=== PATIENT | female | born 1935 | race Caucasian/White ===

== ENCOUNTER → 2016-11-01 | Outpatient (CLI) | payer OTHER ==
[2016-01-18 09:27] VITALS: BP 122/78
[2016-11-01 09:16] LABS: HEMOGLOBIN A1C 6.2 % (4.5-6.2)
[2016-11-01 09:18] LABS: CHOL/HDL RATIO 7.5 (0.0-5.0)
== END ==
LOC: LAB 08:39
PROVIDERS: ATTEND Nurse Practitioner Family
DX: R74.8 Abnormal levels of other serum enzymes (principal); E78.4 Other hyperlipidemia; E11.9 Type 2 diabetes mellitus without complications; M85.9 Disorder of bone density and structure, unspecified
CPT/HCPCS: 36415; 80061; 82306; 83036; 84450; 84460

== ENCOUNTER 2017-04-17 07:23 | Day surgery (SDC) | payer OTHER ==
[2017-04-17] MEDS ORDERED: D5 LR 1000 ML 1,000 ML IV ONE (07:30)
[2017-04-17] MEDS ORDERED: DIPRIVAN VIAL 20 ML ONE (08:43)
[2017-04-17 09:24] VITALS: BP 128/76
== END 2017-04-17 09:15 | disposition home or self-care (01) ==
LOC: SURG1 07:23
PROVIDERS: ATTEND Internal Medicine Gastroenterology
PROC: 0D757ZZ Dilation of Esophagus, Via Natural or Artificial Opening (ICD-10-PCS; principal; 2017-04-17 08:30)
PROC: 0DB68ZX Excision of Stomach, Via Natural or Artificial Opening Endoscopic, Diagnostic (ICD-10-PCS; principal; 2017-04-17 08:30)
PROC: 0DBN8ZX Excision of Sigmoid Colon, Via Natural or Artificial Opening Endoscopic, Diagnostic (ICD-10-PCS; principal; 2017-04-17 08:30)
PROC: 0DJ08ZZ Inspection of Upper Intestinal Tract, Via Natural or Artificial Opening Endoscopic (ICD-10-PCS; principal; 2017-04-17 08:30)
DX: R13.19 Other dysphagia (principal); R10.13 Epigastric pain; R19.7 Diarrhea, unspecified; K20.8 Other esophagitis; K22.4 Dyskinesia of esophagus; K22.2 Esophageal obstruction; K21.9 Gastro-esophageal reflux disease without esophagitis
CPT/HCPCS: 99100; A4217; J3490; J7120

== ENCOUNTER → 2017-06-03 | Outpatient (CLI) | payer OTHER ==
--- NOTE | 2017-06-06 11:14 | MG ---
HISTORY: SCREENING Comparison: 05/14/2016 FINDINGS: CC and MLO projections of the right and left breast were obtained. Scattered fibroglandular tissue i s present. No significant architectural distortion, mass or clustered microcalcifications can be obs erved to suggest malignancy. No skin thickening or nipple retraction is appreciated. No pathologic al lymphadenopathy can be identified. Benign calcifications are present bilaterally. There is a biops y clip noted in the left breast. IMPRESSION: NO RADIOGRAPHIC EVIDENCE OF MALIGNANCY. ACR CATEGORY 2: Benign findings. FOLLOW-UP EXAM 1 YEAR. Diagnostic CAD was utilized and reviewed. * 0 (ZERO) - ASSESSMENT INCOMPLETE; ADDITIONAL IMAGING IS NEEDED. * 1/ (ONE) - NEGATIVE. * 2/II (TWO) - BENIGN FINDINGS. * 3/III (THREE) - PROBABLY BENIGN FINDING; SHORT INTERVAL FOLLOW-UP SUGGESTED. * 4/IV (FOUR) - SUSPICIOUS ABNORMALITY; BIOPSY SHOULD BE CONSIDERED. * 5/V - HIGHLY SUSPICIOUS OF MALIGNANCY; BIOPSY SHOULD BE PERFORMED. A NEGATIVE X-RAY REPORT SHOULD NOT DELAY BIOPSY IF A DOMINANT OR CLINICALLY SUSPICIOUS MASS IS PRESENT; 4 TO 8 PERCENT OF CANCERS ARE NOT IDENTIFIED BY X-RAY. A NEGA TIVE REPORT MAY REINFORCE THE CLINICAL IMPRESSION. ADENOSIS AND DENSE BREASTS MAY OBSCURE AN UNDERLY ING NEOPLASM. Reported By:
== END ==
LOC: RAD 09:48
PROVIDERS: ATTEND Internal Medicine
DX: Z12.31 Encounter for screening mammogram for malignant neoplasm of breast (principal)
CPT/HCPCS: 77067

== ENCOUNTER 2021-12-03 09:38 | Observation (INO) ==
--- NOTE | 2021-12-03 10:12 | DR.DIZZY ---
HPI Time seen Time Seen by Provider: 12/03/21 10:06 PCP Primary Care Physician: Roberto HPI Comment HPI Comment: PATIENT IS 86YR OLD FEMALE IN ER WITH BELOW HISTOEY. Complaint Chief Complaint Doctor Comments: FELL THIS AM. RIGHT HIP PAIN AND INCREASING RIGHT NECK PAIN SINCE. DIARRHES LAST NIGHT BUT NO BP TODAY. GENERALIZED WEAKNESS THAT IS GETTING WORSE. DENIES DIZZINESS. PAIN IN BOTH ARMS FOR SEVERAL DAYS AND WORSE TODAY. NO FEVER, NAUSEA OR VOMITING. PMH OF DM, HTN AND ARTHRTIS. GLUCOSE IS NOT LOW. Chief Complaint:: Pt c/o fall this am. She c/o neck pain and right hip pain. Pt reports multiple episodes of diarrhea last night and weakness this am. Pt has had pain in bilateral arms for several days. Daughter states her right leg and ankle was swollen yesterday but this is resolved today. COVID-19 Coronavirus risk:travel/contact w/high risk person: No Has patient experienced Coronavirus symptoms: No Nurses Notes Reviewed Nurses Notes Review: Yes Source History Provided: Patient and Family Member Mode of Arrival Mode of Arrival: Stretcher Timing Onset of Chief Complaint: 12/03/21 Came on: Suddenly Duration Duration: Constant Duration: Hours Location of Weakness Weakness Location: Generalized Context Onset: With light exertion History of: None Stroke Symptoms: None Severity Severity: Normal activity level Modifying factors Worsens: Turning Head Associated signs and symptoms Associated Signs and Symptoms: Weak and Headache Other history Other history: DM, HTN, ARTHRITIS. PMH PMH Past Medical History: Yes Past Medical History: Arthritis, Diabetes, Hypertension and PUD Past Surgical History: Yes Surgical History: Cholecystectomy, Hysterectomy, Joint Replacement, Ortho Surgery and Tonsillectomy Family History History of Family Medical Conditions: Yes Family Medical History: Diabetes Mellitus, [place], Coronary Artery Disease, Sudden Cardiac and Hypertension Social History Does patient currently use any type of tobacco product: No Have you used tobacco products in the last 12 months: No Type of Tobacco Use: None Does any household member use tobacco: No Do you use any recreational Drugs:: No Lives With: Alone Lives Where: Home Travel Risk Coronavirus risk:travel/contact w/high risk person: No Has patient experienced Coronavirus symptoms: No Infectious screening In the last 2 months have you had wt loss of >10#?: YES Have you had fever, night sweats or hemotysis?: No Have you traveled outside the country in the last 6 months?: No Isolation: Standard ROS Review of Systems Constitutional: See HPI, Weakness and Fatigue; negative Fever Eyes: No Symptoms Reported and See HPI; negative Blurred Vision and Diplopia ENTM: No Symptoms Reported and See HPI; negative Nose Discharge and Nose Congestion Respiratoy: No Symptoms Reported and See HPI; negative Moist Cough, Short of Breath and Wheezing Cardiovascular: No Symptoms Reported, See HPI and Edema (ON AND OFF); negative Chest Pain Gastrointestinal/Abdominal: See HPI, Abdominal Pain and Diarrhea Genitourinary: No Symptoms Reported and See HPI; negative Dysuria Neurological: See HPI, Headache and Weakness; negative Dizziness Musculoskeletal: See HPI, Back Pain, Pelvis and Hip (RT HIP PAIN.) Integumentary: No Symptoms Reported and See HPI; negative Rash and Juandice Hematologic/Lymphatic: No Symptoms Reported and See HPI; negative Easy Bruising Endocrine: No Symptoms Reported and See HPI; negative Increased Thirst and Increased Urine Psychiatric: No Symptoms Reported and See HPI All Other Systems: Reviewed and Negative PE Vital Signs Vitals: Temperature 98.5 F Pulse Rate 99 Respiratory Rate 16 Blood Pressure [Left Arm] 146/72 Blood Pressure [Right Arm] 133/64 Blood Pressure 154/85 O2 Sat by Pulse Oximetry 98 General Limitations: No Limitations General Appearance: Alert and In No Apparent Distress Head Head Exam: Normal Inspection and Atraumatic Eyes Eye exam: Normal Appearance, PERRL and EOMI; negative Scleral Icterus and Conjunctival Injection Pupils: Regular, Round: Bilateral and Reactive: Bilateral Sclera/Conjunctival: Normal Inspection: Bilateral ENT ENT Exam: Normal Exam, Normal Oropharynx, Normal External Ear Exam and TM's Normal Bilaterally Neck Neck Exam: Normal Inspection, Full ROM, Trachea Midline and Tenderness (POSTERIOR RIGHT NECK TENDERNESS.) Chest Chest Inspection: Normal Inspection and Symmetric Chest Wall Rise; negative Tenderness Respiratory Respiratory Exam: Normal Lung Sounds Bilat; negative Accessory Muscle Use, Chest Wall Tenderness and Respiratory Distress Respiratory Exam: Bilateral: Rhonchi and Lower: Rhonchi Cardiovascular Cardiovascular Exam: Regular Rate, Normal Rhythm and Normal Heart Sounds; negative Systolic Murmur and Diastolic Murmur Abdominal Exam Abdominal Exam: Normal Inspection, Normal Bowel Sounds and Soft; negative Tenderness Rectal Rectal Exam: Deferred Extremeties Extremities Exam: Normal Inspection, Full ROM and Tenderness (BILATERAL HIP TENDERNESS.); negative Normal Capillary Refill Back Back Exam: Normal Inspection and Full ROM; negative (R) CVA Tenderness and (L) CVA Tenderness Neurologic Neurological Exam: Alert and Oriented X3; negative Motor Sensory Deficit Patient Oriented To: Person, Place and Time Speech: Fluid Speech Cranial Nerve Exam: EOM Function (II, III, IV, ): Normal, Facial Sensation (V): Normal, Facial Palsy (VII): Normal and Tongue Deviation: Normal Motor Strength - LUE: 4/5 Motor Strength - RUE: 4/5 Motor Strength - LLE: 3/5 Motor Strength - RLE: 3/5 Upper Motor Neuron Exam: Babinski Sign: Normal Psychiatric Psychiatric Exam: Normal Affect and Normal Mood Skin Skin Exam: Warm, Dry, Intact and Normal Color MDM Additional Information Obtained Additional Information Obtained From: Old Records and Family Differential Diagnosis Differential Diagnosis: Anemia, CVA, Dehydration, Dysrhythmia, Electrolyte disorder, Hypoglycemia, Labyrinthitis, Myocardial infarction, TIA and Central Vertigo Differential Diagnosis Comment: IA, PNEUMONIA, HIP PAIN, UTI. COURSE Treatment Treatment: SEE ORDERS DONE WHILE PATIENT WAS IN ER. Consultation Consultation Comments: DISCUSSED PATIENT WITH DR. YANG. WISAM ADMIT PATIENT. Education/Counseling Education/Counseling: Patient and Family Educated On: Diagnosis ROR Labs Reviewed Laboratory Results Reviewed?: Yes Result Diagrams: 12/05/21 05:07 12/05/21 05:07 Laboratory: 12/03/21 10:58 Urine,Catheterized Urine Culture - Preliminary WBC 4.1 X10^3/uL (3.6-10.0) 12/03/21 10:20 RBC 4.11 X10^6/uL (3.5-5.4) 12/03/21 10:20 Hgb 11.1 g/dL (12.0-16.0) L 12/03/21 10:20 Hct 33.1 % (36.0-47.0) L 12/03/21 10:20 MCV 80.4 fL (80.0-100.0) 12/03/21 10:20 MCH 26.9 pg (27.0-34.0) L 12/03/21 10:20 MCHC 33.5 g/dL (33.0-35.0) 12/03/21 10:20 RDW 14.6 % (11.6-16.5) 12/03/21 10:20 Plt Count 224 X10^3/uL (150.0-450.0) 12/03/21 10:20 MPV 8.5 fL (7.4-11.0) 12/03/21 10:20 Neut % (Auto) 71.0 % (42.0-75.0) 12/03/21 10:20 Lymph % (Auto) 14.9 % (21.0-51.0) L 12/03/21 10:20 Noble % (Auto) 8.5 % (0.0-13.0) 12/03/21 10:20 Eos % (Auto) 4.8 % (0.9-2.9) H 12/03/21 10:20 Baso % (Auto) 0.8 % (0.2-1.0) 12/03/21 10:20 Neut # (Auto) 2.9 x10^3/uL (2.2-4.8) 12/03/21 10:20 Lymph # (Auto) 0.6 X10^3/uL (1.3-2.9) L 12/03/21 10:20 Noble # (Auto) 0.4 x10^3/uL (0.3-0.8) 12/03/21 10:20 Eos # (Auto) 0.2 x10^3/uL (0.0-0.2) 12/03/21 10:20 Baso # (Auto) 0.0 X10^3/uL (0.0-0.1) 12/03/21 10:20 Absolute Nucleated RBC 0.0 /100WBC 12/03/21 10:20 Sodium 139 mmol/L (136-145) 12/03/21 10:20 Corrected Sodium TNP 12/03/21 10:20 Potassium 4.0 mmol/L (3.5-5.1) 12/03/21 10:20 Chloride 105 mmol/L (98-107) 12/03/21 10:20 Carbon Dioxide 23.8 mmol/L (21-32) 12/03/21 10:20 BUN 18 mg/dL (7-18) 12/03/21 10:20 Creatinine 0.88 mg/dL (0.55-1.02) 12/03/21 10:20 Est GFR (MDRD) Af Amer > 60 (>60) 12/03/21 10:20 Est GFR (MDRD) Non-Af > 60 (>60) 12/03/21 10:20 Glucose 98 mg/dL (65-99) 12/03/21 10:20 Calcium 9.4 mg/dL (8.5-10.1) 12/03/21 10:20 Corrected Calcium 10.0 mg/dL (8.5-10.1) 12/03/21 10:20 Total Bilirubin 0.40 mg/dL (0.2-1.0) 12/03/21 10:20 AST 22 Units/L (15-37) 12/03/21 10:20 ALT 20 Units/L (12-78) 12/03/21 10:20 Alkaline Phosphatase 40 Units/L (46-116) L 12/03/21 10:20 Creatine Kinase 223 Units/L (26-192) H 12/03/21 10:20 CK-MB (CK-2) 2.1 ng/mL (0-4.0) 12/03/21 10:20 CK/CKMB % Calc 0.9 % (<4) 12/03/21 10:20 Troponin I High Sens 5.6 ng/L (4.0-60.0) 12/03/21 10:20 Total Protein 6.6 g/dL (6.4-8.2) 12/03/21 10:20 Albumin 3.3 g/dL (3.4-5.0) L 12/03/21 10:20 Globulin 3.3 g/dL (2.5-4.5) 12/03/21 10:20 Albumin/Globulin Ratio 1.0 Ratio (1.1-2.1) L 12/03/21 10:20 Specimen Type Catherized urine 12/03/21 10:58 Urine Color Yellow (YELLOW) 12/03/21 10:58 Urine Appearance Slightly hazy (CLEAR) 12/03/21 10:58 Urine pH 6.0 (5.0 - 8.0) 12/03/21 10:58 Ur Specific [place] 1.015 (1.000-1.030) 12/03/21 10:58 Urine Protein 1+ (NEGATIVE) 12/03/21 10:58 Urine Glucose (UA) Negative (NEGATIVE) 12/03/21 10:58 Urine Ketones Negative (NEGATIVE) 12/03/21 10:58 Urine Blood 1+ (NEGATIVE) 12/03/21 10:58 Urine Nitrite Negative (NEGATIVE) 12/03/21 10:58 Urine Bilirubin Negative (NEGATIVE) 12/03/21 10:58 Urine Urobilinogen 3+ (NORMAL) 12/03/21 10:58 Ur Leukocyte Esterase 2+ (NEGATIVE) 12/03/21 10:58 Urine RBC 5-10 /HPF (0-3) A 12/03/21 10:58 Urine WBC 10-20 /HPF (0-5) A 12/03/21 10:58 Ur Squamous Epith Cells Rare /HPF (NEGATIVE) 12/03/21 10:58 Amorphous Sediment Trace /HPF (NEGATIVE) 12/03/21 10:58 Urine Bacteria 2+ /HPF (NEGATIVE) 12/03/21 10:58 Ur Culture Indicated? Yes/culture set up 12/03/21 10:58 SARS-CoV-2 (PCR) Negative (NEGATIVE) 12/03/21 12:17 XRAY XRAY Interpreted by: Radiologist (REPORT NOTED.) and Self EKG Rate: 87 [place]: Normal Rhythm: NSR Block: None Hypertrophy: None ST: Old, Inf, Ant and Infarct Opioid Opioid Risk Tool Age (J Luis box if 16-45): No History of Preadolescent Sexual Abuse: No Total: 0 Total Score Risk Category: Low Risk Copyright: Manjit SANTOYO predicting aberrant behaviors Diagnosis Discharge Problem: Dizziness, Generalized weakness, Cervical pain (neck), Bilateral hip pain UTI (urinary tract infection) Qualifiers: Urinary tract infection type: site unspecified Hematuria presence: with hematuria Qualified Code(s): N39.0 - Urinary tract infection, site not specified Fall Qualifiers: Encounter type: initial encounter Qualified Code(s): W19.XXXA - Unspecified fall, initial encounter Instructions Instructions: Fall Prevention in the Home, Adult, Jdvs-xo-Wkov Understanding Your Risk for Falls Weakness, Bzef-bo-Lbkb Urinary Tract Infection, Adult, Fhyr-qs-Hbph Living With Diabetes How to Use a Walker Hypertension, Adult, Uwya-zi-Silb Dizziness, Xgxz-[id number]-[id number] You've Been Prescribed an Antibiotic in the Hospital for an Infection - CDC Rehydration, Elderly Forms: Precautions for COVID19 [facility] Patient Portal Social Distancing
[2021-12-03 10:35] LABS: BASOPHILS % (AUTO) 0.8 % (0.2-1.0); EOSINOPHILS # (AUTO) 0.2 x10^3/uL (0.0-0.2); EOSINOPHILS % (AUTO) 4.8 % (0.9-2.9); HEMATOCRIT 33.1 % (36.0-47.0); HEMOGLOBIN 11.1 g/dL (12.0-16.0); LYMPHOCYTES # (AUTO) 0.6 X10^3/uL (1.3-2.9); LYMPHOCYTES % (AUTO) 14.9 % (21.0-51.0); MEAN CORPUSCULAR HEMOGLOBIN 26.9 pg (27.0-34.0); MEAN CORPUSCULAR HGB CONC 33.5 g/dL (33.0-35.0); MEAN CORPUSCULAR VOLUME 80.4 fL (80.0-100.0); MEAN PLATELET VOLUME 8.5 fL (7.4-11.0); MONOCYTES # (AUTO) 0.4 x10^3/uL (0.3-0.8); MONOCYTES % (AUTO) 8.5 % (0.0-13.0); NEUTROPHILS # (AUTO) 2.9 x10^3/uL (2.2-4.8); RED BLOOD COUNT 4.11 X10^6/uL (3.5-5.4); RED CELL DISTRIBUTION WIDTH 14.6 % (11.6-16.5); WHITE BLOOD COUNT 4.1 X10^3/uL (3.6-10.0)
[2021-12-03 10:53] LABS: ALANINE AMINOTRANSFERASE 20 Units/L (12-78); ALBUMIN 3.3 g/dL (3.4-5.0); ALKALINE PHOSPHATASE 40 Units/L (46-116); ASPARTATE AMINO TRANSFERASE 22 Units/L (15-37); BLOOD UREA NITROGEN 18 mg/dL (7-18); CALCIUM 9.4 mg/dL (8.5-10.1); CARBON DIOXIDE 23.8 mmol/L (21-32); CHLORIDE 105 mmol/L (98-107); CKMB % 0.9 % (<4); CREATINE KINASE 223 Units/L (26-192); CREATINE KINASE MB 2.1 ng/mL (0-4.0); CREATININE 0.88 mg/dL (0.55-1.02); SODIUM 139 mmol/L (136-145); TOTAL PROTEIN 6.6 g/dL (6.4-8.2); eGFR NON BLACK RACES > 60 (>60)
--- NOTE | 2021-12-03 11:12 | CT ---
HISTORYTrauma, painSTUDYCT brain without contrastCOMPARISONTuba City Regional Health Care Corporationuary 1999TECHNIQUEMultiple axial images of the brain were obtained from the skull base to the vertex [without] administration of IV contrast.Dose reduction techniques including Automated Exposure Control (AEC) and adjustment of mA and kV were utlized.FINDINGS[No acute intraparenchymal hemorrhage or mass can be identified.] [No extra-axial fluid collections are seen.] [No alteration in the attenuation of the brain parenchyma can be identified to suggest acute or subacute ischemic change.] Scattered small vessel ischemic changes and age-appropriate atrophy are noted [the ventricular system is symmetric and nondilated.] [The extracranial structures are grossly unremarkable.]IMPRESSION[No acute intracranial process can be identified.]Electronically signed by: XIAO BANUELOS (Dec 03, 2021 11:09:29)
--- NOTE | 2021-12-03 11:13 | CT ---
HISTORYTRAUMA, PAINSTUDYCERVICAL SPINE W/O CONCOMPARISONNoneTECHNIQUEMultiple axial images of the cervical spine were obtained from the skull base to the thoracic inlet without administration of IV contrast. Sagittal and coronal reformats were performed and reviewed. Dose reduction techniques including Automated Exposure Control (AEC) and adjustment of mA and kV were utilized.FINDINGSAlignment of the cervical spine demonstrates grade spondylolisthesis of C4-5 which is felt to be degenerative as the posterior elements align normally. No evidence for acute cortical disruption or subluxation can be seen. The central canal remains free of compromise from bony fragments or significant soft tissue encroachment. The posterior elements appear unremarkable. The prevertebral soft tissues are normal in their appearance. In addition, the surrounding paraspinous soft tissues are unremarkable.Moderate degenerative changes of the cervical spine are incidentally noted. There is a tiny 3 mm upper pulmonary which could be followed in 3-[address]IMPRESSIONNo evidence for traumatic injury of the cervical spine.Electronically signed by: XIAO BANUELOS (Dec 03, 2021 11:11:38)
--- NOTE | 2021-12-03 11:21 | RAD ---
HISTORYTraumaSTUDYBilateral hips three viewsCOMPARGEORGETOWN BEHAVIORAL HOSPITALFeuary 2021 report onlyFINDINGSThere is no evidence for left or right hip fracture or dislocation. There is symmetric narrowing of joint spaces. The femoral heads are in normal position. No bone destruction or soft tissue abnormality is demonstrated.IMPRESSIONBilateral hip osteoarthrosis. No recent injury identified.Electronically signed by: GARRY DE LA TORRE (Dec 03, 2021 11:19:57)
[2021-12-03 11:22] LABS: BILIRUBIN,URINE NEGATIVE (NEGATIVE); BLOOD/HEMOGLOBIN,URINE 1+ (NEGATIVE); GLUCOSE, URINE NEGATIVE (NEGATIVE); KETONES,URINE NEGATIVE (NEGATIVE); LEUKOCYTE ESTERASE ,URINE 2+ (NEGATIVE); NITRITES,URINE NEGATIVE (NEGATIVE); PROTEIN,URINE 1+ (NEGATIVE); UROBILINOGEN,URINE 3+ (NORMAL)
[2021-12-03] MEDS ORDERED: ULTRAM PO ONE (11:22)
[2021-12-03 11:23] LABS: COLOR,URINE YELLOW (YELLOW)
[2021-12-03] MEDS ORDERED: ULTRAM ONE (11:25)
--- NOTE | 2021-12-03 11:26 | RAD ---
HISTORYTraumaSTUDYAP [id number] cardiac prominence with clear lungs and pleural spaces. There is no evidence for pneumonia, CHF or other acute process.IMPRESSIONNo interval change; no acute findings.Electronically signed by: GARRY DE LA TORRE (Dec 03, 2021 11:25:07)
[2021-12-03 11:33] LABS: APPEARANCE,URINE SLIGHTLY HAZY (CLEAR); BACTERIA,URINE 2+ /HPF (NEGATIVE); SQUAMOUS EPITHELIAL CELL,UR RARE /HPF (NEGATIVE)
[2021-12-03] MEDS ORDERED: ROCEPHIN 1 GRAM IV PREMIX 1 G/50 ML IV.SOLN. IV ONE (13:16)
[2021-12-03] MEDS ORDERED: ROCEPHIN VIAL 1 GRAM ONE (13:30)
[2021-12-03 14:50] VITALS: BMI 23.4
[2021-12-03] MEDS: NS 1,000 ML IV 1,000 ML IV SCH (14:55)
--- NOTE | 2021-12-03 17:16 | MRI ---
HISTORYFrequent fallsSTUDYBRAIN W/O CONCOMPARISONCT head without contrast from December 03, 2021TECHNIQUENon-contrast MRI images of the brain were obtained utilizing a routine protocol.FINDINGSPeriventricular chronic microvascular disease.Age related global atrophy.No abnormal signal in the dural sinuses on the sagittal T1 sequence.Pituitary gland and stalk appear normal.No mass effect on the optic chiasm.No Chiari 1 malformation.Imaged portion of the spine and spinal cord appear grossly normal.No restricted diffusion.Flow voids appear normal on the T2 sequence.No intracranial, extra-axial, fluid collection.No mass, mass effect or midline shift.No abnormal areas of acute T2 signal in the brain parenchyma.No blooming artifact in the brain parenchyma.Sinuses are well aeratedMastoid air cells are well aerated.Globes and intra-orbital contents appear normal.IMPRESSION1. No acute intracranial abnormality identified.2. Periventricular chronic microvascular disease.3. Age related global atrophy.Electronically signed by: Rodríguez Maria (Dec 03, 2021 17:14:36)
[2021-12-03 17:35] LABS: CKMB % 1.2 % (<4); CREATINE KINASE MB 3.3 ng/mL (0-4.0)
[2021-12-03] MEDS ORDERED: PATIENT'S HOME MEDICATION (Alprazolam 0.5 mg tablet) PO PRN (18:38)
[2021-12-03] MEDS: ULTRAM PO PRN (18:52)
[2021-12-03] MEDS ORDERED: GLUCOPHAGE ONE (19:44)
[2021-12-03] MEDS: PROTONIX TAB 40 MG PO SCH (20:25)
[2021-12-03] MEDS: CELEXA PO SCH (20:25)
[2021-12-03] MEDS: GLUCOPHAGE PO SCH (20:25)
[2021-12-03] MEDS: MEGACE PO SCH (20:26)
[2021-12-03] MEDS: XANAX PO PRN (20:26)
[2021-12-03] MEDS: RAMIPRIL 1.25 MG PO SCH (21:19)
[2021-12-03 23:54] LABS: CKMB % 1.2 % (<4); CREATINE KINASE MB 2.7 ng/mL (0-4.0)
[2021-12-04] MEDS: NS 1,000 ML IV 1,000 ML IV SCH ×2 (03:11→19:12)
[2021-12-04 05:47] LABS: BASOPHILS % (AUTO) 1.3 % (0.2-1.0); EOSINOPHILS # (AUTO) 0.3 x10^3/uL (0.0-0.2); HEMATOCRIT 32.1 % (36.0-47.0); HEMOGLOBIN 10.8 g/dL (12.0-16.0); LYMPHOCYTES # (AUTO) 0.9 X10^3/uL (1.3-2.9); LYMPHOCYTES % (AUTO) 24.9 % (21.0-51.0); MEAN CORPUSCULAR HEMOGLOBIN 27.3 pg (27.0-34.0); MEAN CORPUSCULAR HGB CONC 33.8 g/dL (33.0-35.0); MEAN CORPUSCULAR VOLUME 80.7 fL (80.0-100.0); MEAN PLATELET VOLUME 8.8 fL (7.4-11.0); MONOCYTES # (AUTO) 0.3 x10^3/uL (0.3-0.8); MONOCYTES % (AUTO) 9.1 % (0.0-13.0); NEUTROPHILS # (AUTO) 2.2 x10^3/uL (2.2-4.8); NEUTROPHILS % (AUTO) 57.7 % (42.0-75.0); RED BLOOD COUNT 3.98 X10^6/uL (3.5-5.4); WHITE BLOOD COUNT 3.8 X10^3/uL (3.6-10.0)
[2021-12-04 06:00] LABS: ALANINE AMINOTRANSFERASE 18 Units/L (12-78); ALKALINE PHOSPHATASE 40 Units/L (46-116); ASPARTATE AMINO TRANSFERASE 29 Units/L (15-37); BLOOD UREA NITROGEN 14 mg/dL (7-18); CALCIUM 9.3 mg/dL (8.5-10.1); CARBON DIOXIDE 22.9 mmol/L (21-32); CHLORIDE 106 mmol/L (98-107); COR CA(FOR HYPOALB) 10.1 mg/dL (8.5-10.1); CREATININE 0.69 mg/dL (0.55-1.02); MAGNESIUM 1.6 mg/dL (1.7-2.9); SODIUM 137 mmol/L (136-145); TOTAL PROTEIN 6.4 g/dL (6.4-8.2); eGFR NON BLACK RACES > 60 (>60)
[2021-12-04] MEDS ORDERED: POTASSIUM CHL 40 MEQ/NS 0.45% 500 ML IV PRN (06:16)
[2021-12-04] MEDS ORDERED: KLOR-CON PO PRN (06:16)
[2021-12-04] MEDS ORDERED: K-RIDER 10 MEQ/NS 100 ML 10 MEQ/100 ML BAG IV PRN (06:16)
[2021-12-04] MEDS ORDERED: POTASSIUM CHLORIDE LIQ 20 MEQ UDC PO PRN (06:16)
[2021-12-04] MEDS ORDERED: K-DUR TAB 20 MEQ PO PRN (06:16)
[2021-12-04] MEDS ORDERED: MICRO K EXTEN CAP 10 MEQ PO PRN (06:16)
[2021-12-04] MEDS ORDERED: POTASSIUM CHL 60 MEQ/NS 0.45% 500 ML IV PRN (06:16)
[2021-12-04] MEDS: MAGNESIUM SULFATE 1 GRAM/100 mL PREMIX 1 G/100 ML BAG IV PRN ×2 (06:38→12:00)
[2021-12-04] MEDS ORDERED: GLUCOPHAGE ONE (08:33)
[2021-12-04] MEDS: GLUCOPHAGE PO SCH (08:52)
[2021-12-04] MEDS: PROTONIX TAB 40 MG PO SCH (08:53)
[2021-12-04] MEDS: CELEXA PO SCH ×2 (08:53→08:57)
[2021-12-04] MEDS: MEGACE PO SCH ×2 (08:54→21:18)
[2021-12-04] MEDS: RAMIPRIL 1.25 MG PO SCH (08:58)
[2021-12-04] MEDS ORDERED: ROCEPHIN 1 GRAM IV PREMIX 1 G/50 ML IV.SOLN. IV SCH (09:00)
[2021-12-04] MEDS: LOVENOX INJ 40 MG SYR SC SCH (09:27)
[2021-12-04] MEDS: ROCEPHIN VIAL 1 GRAM 1 G in NS 100 ML IV 100 ML IV SCH (11:00)
--- NOTE | 2021-12-04 15:47 | RAD ---
Right ankle three viewsIndication: PainFINDINGSThere is no cortical lucency or malalignment. Tibiotalar joint is intact. Soft tissue swelling is seen about the ankles. There is no cortical lucency or malalignment.IMPRESSIONNo acute fractureElectronically signed by: NEELAM PHILLIPS (Dec 04, 2021 15:45:03)
--- NOTE | 2021-12-04 16:35 | RAD ---
Right knee three viewsIndication: Pain after arthroplasty placementFINDINGSThere is no cortical lucency or malalignment. Hardware is intact.IMPRESSIONRight knee arthroplasty hardware is intact.Electronically signed by: NEELAM PHILLIPS (Dec 04, 2021 16:33:56)
--- NOTE | 2021-12-04 16:53 | DR.H&P ---
H&P - History & Physical for Day of: H&P Date: 12/03/21 - Chief Complaint Chief Complaint: GENERALIZED WEAKNESS, LOWER EXTREMITY WEAKNESS, FREQUENT FALLS, NECK PAIN, RIGHT HIP PAIN - History of Present Illness History of Present Illness: IS A 86 YEAR OLD PATIENT OF OURS. SHE PRESENTED TO THE ER WITH MULTIPLE COMPLAINTS FOLLOWING A FALL AT HOME. PATIENT REPORTS FALLING MULTIPLE TIMES OVER THE PAST FEW MONTHS. SHE FELL ON THE MORNING THAT SHE CAME TO THE ER. SHE COMPLAINS OF NECK PAIN, RIGHT HIP PAIN, BILATERAL ARM PAIN, RIGHT LEG AND ANKLE SWELLING, BILATERAL LOWER EXTREMITY WEAKNESS, AND SEVERAL EPISODES OF DIARRHEA OVER THE PAST FEW DAYS. SHE ALSO ADMITS TO SUPRAPUBIC CRAMPING. PATIENTS DAUGHTER REPORTS THAT PATIENT IS UNABLE TO WALK, STAND, OR LIFT HER RIGHT LEG OFF OF THE BED. UPON EXAMINATION, BLE WEAKNESS IS NOTED, BUT SWELLING TO RIGHT KNEE AND ANKLE HAVE RESOLVED. HER PMH INCLUDES ARTHRITIS, DIABETES, HTN, AND PUD, AND BILATERAL KNEE REPLACEMENT. ON ARRIVAL TO THE ER, VITALS WERE: 98.5-109-18-96%-108/66. LABS WERE OBTAINED. WBC 4.1, RBC 4.11, HGB 11.1, HCT 33.1, PLT COUNT 224, SODIUM 39, POTASSIUM 4.0, CHLORIDE 25, BUN 18, CREATININE 0.88, GLUCOSE 98, CALCIUM 9.4, AST 22, ALT 20, ALKJ PHOS 40, CREATINE KINASE 223, ALBUMIN 3.3. HER CARDIAC ENZYMES WERE WITHIN NORMAL LIMITS. COVID-19 NEGATIVE. URINALYSIS REVEALED: WBC 10-20, RBC 5-10, LEUKOCYTES 2+, BACTERIA 2+, NITRITE NEGATIVE, BLOOD 1+, PROTEIN 1+. A URINE CULTURE WAS SET UP. A C-SPINE CT WAS OBTAINED AND REVEALED: No evidence for traumatic injury of the cervical spine. HEAD CT REVEALED: No acute intracranial process can be identified. BILATERAL HIP XRAY REVEALED: Bilateral hip osteoarthrosis. No recent injury identified. A CHEST XRAY WAS OBTAINED AND REVEALED: No interval change; no acute findings. A BRAIN MRI WAS OBTAINED AND REVEALED: 1. No acute intracranial abnormality identified.2. Periventricular chronic microvascular disease.3. Age related global atrophy. EKG REVEALED: SINUS TACHYCARDIA WITH HR 102. IN THE ER, SHE WAS GIVEN ULTRAM 50MG PO X 1, ROCEPHIN 1G IV X 1, AND CELEXA 40MG PO X 1. SHE WAS ADMITTED TO THE HOSPITAL OBSERVATION STATUS FOR TREATMENT OF UTI, RHABDO, FREQUENT FALLS, GENERALIZED WEAKNESS, NECK PAIN, AND HIP PAIN. SHE WAS STARTED ON NORMAL SALINE AT 75 ML/HR, THE POTASSIUM AND MAGNESIUM PROTOCOL, TRAMADOL 50MG PO TID PRN, PROTONIX 40MG PO DAILY, METFORMIN 500MG PO DAILY, LOVENOX 40MG SC DAILY, CELEXA 40MG PO HS, XANAX 0.5MG PO HS PRN, AND ROCEPHIN 1G IV DAILY. WE WILL HAVE PHYSICAL THERAPY EVALUATE HER. OTHERWISE, WE PLAN TO FOLLOW-UP WITH AM LABS AND CONTINUE TO MONITOR. - Past Medical History Past Medical History: Hypertension, Diabetes, PUD, Arthritis Additional Medical History: Gastritis, Occasional urinary incontinence, Osteoarthritis, Back Pain, Cataracts - Past Surgical History Surgical History: Cholecystectomy, Hysterectomy, Joint Replacement, Ortho Surgery, Tonsillectomy Additional Surgical History: Right knee Tka, Carpal tunnel release right hand, Cataract surgery - Family History Family Medical History: Diabetes Mellitus, [place], Coronary Artery Disease, Sudden Cardiac , Hypertension - Social History Does patient currently use any type of tobacco product: No Have you used tobacco products in the last 12 months: No Type of Tobacco Use: None Does any household member use tobacco: No Alcohol Use: None Drug Use: None - Medications Home Medications: ketorolac [From Toradol] Allergy (Verified 06/11/21 09:56) Sulfa (Sulfonamide Antibiotics) [SULFA] Allergy (Verified 06/11/21 09:56) CONTINUE taking the following medications megestrol 40 mg PO BID 12/03/21 [History] metformin 500 mg PO DAILY 12/03/21 [History] - Review of Systems Constitutional: Weakness Eyes: No Symptoms Reported ENT: No Symptoms Reported Respiratory: No Symptoms Reported Cardiovascular: Light Headedness Gastrointestinal: Diarrhea Genitourinary: No Symptoms Reported Musculoskeletal: See HPI, Arm Pain, Back Pain, Neck Pain, Other (HIP PAIN ) Skin: No Symptoms Reported Neurological: Weakness - Physical Exam Vital Signs: Temperature 98.0 F Pulse Rate [Right Brachial] 82 Pulse Rate 97 Respiratory Rate 20 Blood Pressure [Left Arm] 138/67 Blood Pressure [Right Arm] 164/80 Blood Pressure 149/90 O2 Sat by Pulse Oximetry 99 Oriented: Normal Eyes: Normal Ear: Normal Nose: Normal Throat: Normal Respiratory: Diminished Throughout Cardiovascular: Tachycardia : Normal Auscultation: Bowel Sounds: Normal Palpation: Normal Tenderness: Suprapubic Skin: Normal Musculoskeletal: Right (RIGHT KNEE PAIN ), Arm (BILATERAL ARM WEAKNESS ), Hip (BILATERAL HIP APIN), Leg (BILATERAL LEG PAIN AND WEAKNESS, ), Ankle (RIGHT ANKLE PAIN), Back:Paraspinous (NECK PAIN ) Psychiatric: Normal Mood Description: Calm Affect: Normal Speech Pattern: Clear - Assessment/Plan (1) Acute UTI Status: Acute Plan: ADMIT, NORMAL SALINE AT 75 ML/HR, THE POTASSIUM AND MAGNESIUM PROTOCOL, TRAMADOL 50MG PO TID PRN, PROTONIX 40MG PO DAILY, METFORMIN 500MG PO DAILY, LOVENOX 40MG SC DAILY, CELEXA 40MG PO HS, XANAX 0.5MG PO HS PRN, AND ROCEPHIN 1G IV DAILY (2) Rhabdomyolysis Qualifiers: Rhabdomyolysis type: traumatic Status: Acute (3) Frequent falls Status: Acute (4) Generalized weakness Status: Acute (5) Bilateral hip pain Status: Acute (6) Osteoarthritis Qualifiers: Osteoarthritis location: multiple joints Osteoarthritis type: primary Qualified Code(s): M15.9 - Polyosteoarthritis, unspecified Status: Chronic - Allergies Allergies/Adverse Reactions: Allergies Allergy/AdvReac Type Severity Reaction Status Date / Time ketorolac [From Toradol] Allergy Verified 06/11/21 09:56 Sulfa (Sulfonamide Allergy Verified 06/11/21 09:56 Antibiotics) [SULFA]
[2021-12-04] MEDS ORDERED: CELEXA PO SCH (21:00)
[2021-12-04] MEDS: ULTRAM PO PRN (21:17)
[2021-12-04] MEDS: XANAX PO PRN (21:18)
[2021-12-05] MEDS: NS 1,000 ML IV 1,000 ML IV SCH (05:20)
[2021-12-05 05:44] LABS: EOSINOPHILS # (AUTO) 0.3 x10^3/uL (0.0-0.2); EOSINOPHILS % (AUTO) 7.7 % (0.9-2.9); HEMATOCRIT 31.1 % (36.0-47.0); HEMOGLOBIN 10.4 g/dL (12.0-16.0); LYMPHOCYTES # (AUTO) 0.9 X10^3/uL (1.3-2.9); LYMPHOCYTES % (AUTO) 27.5 % (21.0-51.0); MEAN CORPUSCULAR HEMOGLOBIN 26.6 pg (27.0-34.0); MEAN CORPUSCULAR HGB CONC 33.3 g/dL (33.0-35.0); MEAN CORPUSCULAR VOLUME 79.7 fL (80.0-100.0); MEAN PLATELET VOLUME 8.8 fL (7.4-11.0); MONOCYTES # (AUTO) 0.3 x10^3/uL (0.3-0.8); MONOCYTES % (AUTO) 9.1 % (0.0-13.0); NEUTROPHILS # (AUTO) 1.9 x10^3/uL (2.2-4.8); NEUTROPHILS % (AUTO) 54.7 % (42.0-75.0); RED BLOOD COUNT 3.89 X10^6/uL (3.5-5.4); WHITE BLOOD COUNT 3.4 X10^3/uL (3.6-10.0)
[2021-12-05 06:04] LABS: ALANINE AMINOTRANSFERASE 18 Units/L (12-78); ALKALINE PHOSPHATASE 40 Units/L (46-116); ASPARTATE AMINO TRANSFERASE 18 Units/L (15-37); BLOOD UREA NITROGEN 9 mg/dL (7-18); CARBON DIOXIDE 22.4 mmol/L (21-32); CHLORIDE 106 mmol/L (98-107); COR CA(FOR HYPOALB) 9.8 mg/dL (8.5-10.1); CREATININE 0.66 mg/dL (0.55-1.02); MAGNESIUM 1.9 mg/dL (1.7-2.9); SODIUM 138 mmol/L (136-145); TOTAL PROTEIN 6.3 g/dL (6.4-8.2); eGFR NON BLACK RACES > 60 (>60)
[2021-12-05] MEDS: MAGNESIUM SULFATE 1 GRAM/100 mL PREMIX 1 G/100 ML BAG IV PRN ×2 (06:20→08:25)
[2021-12-05] MEDS ORDERED: GLUCOPHAGE ONE (08:18)
[2021-12-05] MEDS: PROTONIX TAB 40 MG PO SCH (08:27)
[2021-12-05] MEDS: GLUCOPHAGE PO SCH (08:28)
[2021-12-05] MEDS: MEGACE PO SCH (08:28)
[2021-12-05] MEDS: LOVENOX INJ 40 MG SYR SC SCH (08:28)
[2021-12-05] MEDS: RAMIPRIL 1.25 MG PO SCH (08:29)
[2021-12-05] MEDS: ULTRAM PO PRN (10:02)
[2021-12-05] MEDS: ROCEPHIN VIAL 1 GRAM 1 G in NS 100 ML IV 100 ML IV SCH (10:03)
[2021-12-05 12:28] VITALS: BP 138/88
== END 2021-12-05 13:10 | disposition home health service (06) ==
LOC: MED/SURG 09:38 → ER 09:38 → MED/SURG 14:05
PROVIDERS: ADMIT Internal Medicine; ATTEND Internal Medicine

== ENCOUNTER 2023-05-19 08:48 | Inpatient (IN) ==
--- NOTE | 2023-05-19 09:05 | EKG ---
Test Reason : AMS Blood Pressure : */* mmHG Vent. Rate : 100 BPM Atrial Rate : 100 BPM P-R Int : 160 ms QRS Dur : 70 ms QT Int : 310 ms P-R-T Axes : 44 -53 35 degrees QTc Int : 399 ms Normal sinus rhythm Left axis deviation Low voltage QRS Inferior infarct (cited on or before 14-JAN-2023) Cannot rule out Anterior infarct , age undetermined Abnormal ECG When compared with ECG of 28-APR-2023 11:43, Sinus rhythm has replaced Ectopic atrial rhythm Nonspecific T wave abnormality, improved in Inferior leads Confirmed by Tahir Jasso MD ([id number]) on 05/19/2023 9:55:40 AM Referred By: Confirmed By: Tahir Jasso MD
[2023-05-19 09:14] VITALS: BMI 20.8
--- NOTE | 2023-05-19 09:32 | DR.AMS ---
HPI Time Seen Time Seen by Provider: 05/19/23 09:31 PCP Primary Care Physician: rick Complaint Chief Complaint:: she is not acting right. pt is sitting up stiff postiion with arms outstretched and legs outright. sluggish to respond verbally but appro priate. when asssiting up into wheelchair noted foul smell of urine. when in er dept pt admits to burning/stinging with urination and holding her urine. COVID-19 Has patient experienced Coronavirus symptoms: No Reviewed Nurses Notes Reviewed: Yes Source History Provided: Patient, Family Member and Correction Mode of Arrival Mode of Arrival: Wheelchair Timing Onset of Chief Complaint: 05/16/23 Symptom Onset: Known Onset of Symptoms Start Date: 05/19/23 Onset of Symptoms Start Time: 08:00 PMH PMH Past Medical History: Yes Past Medical History: Anemia, Anxiety, Arthritis, Coronary Artery Disease, CVA, Depression, Diabetes, Dyslipidemia, GERD and Hypertension Past Surgical History: Yes Surgical History: Cholecystectomy, Hysterectomy, Joint Replacement, Ortho Surgery, Tonsillectomy and Other Family History History of Family Medical Conditions: Yes Family Medical History: Diabetes Mellitus, [place], Coronary Artery Disease, Sudden Cardiac and Hypertension Social History Do you use any recreational Drugs:: No Lives With: Other Lives Where: Correction Travel Risk Has patient experienced Coronavirus symptoms: No Infectious screening In the last 2 months have you had wt loss of >10#?: NO Have you had fever, night sweats or hemotysis?: No Have you traveled outside the country in the last 6 months?: No Isolation: Standard PE Vitals Vital Signs: Temp Pulse Resp BP Pulse Ox O2 Del Method 05/19/23 14:15 95 H 23 95 05/19/23 14:00 125/77 05/19/23 14:00 94 H 15 95 05/19/23 13:45 95 H 24 96 05/19/23 13:30 95 H 17 95 05/19/23 13:30 118/75 05/19/23 13:30 118/75 05/19/23 13:30 118/75 05/19/23 13:15 93 H 13 96 05/19/23 13:00 131/74 05/19/23 13:00 96 H 15 96 05/19/23 12:45 92 H 11 L 96 05/19/23 13:10 20 05/19/23 12:30 117/76 05/19/23 12:30 93 H 11 L 96 05/19/23 12:15 93 H 12 95 05/19/23 12:08 119/76 05/19/23 12:08 96 H 97 05/19/23 11:45 95 H 15 97 05/19/23 11:30 96 H 19 96 05/19/23 11:30 126/74 05/19/23 11:15 95 H 28 H 96 05/19/23 11:00 93 H 18 96 05/19/23 11:00 117/76 05/19/23 10:45 94 H 18 97 05/19/23 10:30 111/74 05/19/23 10:30 111/74 05/19/23 10:30 93 H 18 96 05/19/23 10:15 97 H 19 96 05/19/23 10:00 100 H 25 H 96 05/19/23 10:00 117/74 05/19/23 09:45 98 H 16 96 05/19/23 09:30 97 H 14 95 05/19/23 09:30 110/72 05/19/23 09:30 110/72 05/19/23 09:15 99 H 13 95 05/19/23 09:13 99 H 13 95 05/19/23 09:04 99.4 F 106 H 18 134/81 97 Room Air ROR Labs Reviewed 05/19/23 10:08 05/19/23 10:08 Laboratory: WBC 4.7 X10^3/uL (3.6-10.0) 05/19/23 10:08 RBC 4.15 X10^6/uL (3.5-5.4) 05/19/23 10:08 Hgb 11.8 g/dL (12.0-16.0) L 05/19/23 10:08 Hct 36.2 % (36.0-47.0) 05/19/23 10:08 MCV 87.2 fL (80.0-100.0) 05/19/23 10:08 MCH 28.5 pg (27.0-34.0) 05/19/23 10:08 MCHC 32.7 g/dL (33.0-35.0) L 05/19/23 10:08 RDW 15.2 % (11.6-16.5) 05/19/23 10:08 Plt Count 261 X10^3/uL (150.0-450.0) 05/19/23 10:08 MPV 8.6 fL (7.4-11.0) 05/19/23 10:08 Neut % (Auto) 69.8 % (42.0-75.0) 05/19/23 10:08 Lymph % (Auto) 15.6 % (21.0-51.0) L 05/19/23 10:08 Pike % (Auto) 9.8 % (0.0-13.0) 05/19/23 10:08 Eos % (Auto) 4.2 % (0.9-2.9) H 05/19/23 10:08 Baso % (Auto) 0.6 % (0.2-1.0) 05/19/23 10:08 Neut # (Auto) 3.3 x10^3/uL (2.2-4.8) 05/19/23 10:08 Lymph # (Auto) 0.7 X10^3/uL (1.3-2.9) L 05/19/23 10:08 Pike # (Auto) 0.5 x10^3/uL (0.3-0.8) 05/19/23 10:08 Eos # (Auto) 0.2 x10^3/uL (0.0-0.2) 05/19/23 10:08 Baso # (Auto) 0.0 X10^3/uL (0.0-0.1) 05/19/23 10:08 Absolute Nucleated RBC 0.1 /100WBC 05/19/23 10:08 Sodium 142 mmol/L (136-145) 05/19/23 10:08 Corrected Sodium 142 mmol/L (136-145) 05/19/23 10:08 Potassium 4.1 mmol/L (3.5-5.1) 05/19/23 10:08 Chloride 105 mmol/L (98-107) 05/19/23 10:08 Carbon Dioxide 29.5 mmol/L (21-32) 05/19/23 10:08 BUN 30 mg/dL (7-18) H 05/19/23 10:08 Creatinine 0.80 mg/dL (0.55-1.02) 05/19/23 10:08 Est GFR (MDRD) Af Amer > 60 (>60) 05/19/23 10:08 Est GFR (MDRD) Non-Af > 60 (>60) 05/19/23 10:08 Glucose 117 mg/dL (65-99) H 05/19/23 10:08 Lactic Acid 0.9 mmol/L (0.4-2.0) 05/19/23 10:01 Calcium 9.5 mg/dL (8.5-10.1) 05/19/23 10:08 Corrected Calcium 10.1 mg/dL (8.5-10.1) 05/19/23 10:08 Magnesium 1.9 mg/dL (2.0-2.9) L 05/19/23 10:08 Total Bilirubin 0.40 mg/dL (0.2-1.0) 05/19/23 10:08 AST 22 Units/L (15-37) 05/19/23 10:08 ALT 15 Units/L (12-78) 05/19/23 10:08 Alkaline Phosphatase 51 Units/L (46-116) 05/19/23 10:08 Creatine Kinase 33 Units/L (26-192) 05/19/23 10:08 Troponin I High Sens 4.3 ng/L (4.0-60.0) 05/19/23 10:08 Total Protein 6.7 g/dL (6.4-8.2) 05/19/23 10:08 Albumin 3.2 g/dL (3.4-5.0) L 05/19/23 10:08 Globulin 3.5 g/dL (2.5-4.5) 05/19/23 10:08 Albumin/Globulin Ratio 0.9 Ratio (1.1-2.1) L 05/19/23 10:08 Specimen Type Catherized urine 05/19/23 09:11 Urine Color Dark yellow (YELLOW) 05/19/23 09:11 Urine Appearance Cloudy (CLEAR) 05/19/23 09:11 Urine pH 8.0 (5.0 - 8.0) 05/19/23 09:11 Ur Specific [place] 1.015 (1.000-1.030) 05/19/23 09:11 Urine Protein 3+ (NEGATIVE) 05/19/23 09:11 Urine Glucose (UA) Negative (NEGATIVE) 05/19/23 09:11 Urine Ketones Negative (NEGATIVE) 05/19/23 09:11 Urine Blood 5+ (NEGATIVE) 05/19/23 09:11 Urine Nitrite Negative (NEGATIVE) 05/19/23 09:11 Urine Bilirubin Negative (NEGATIVE) 05/19/23 09:11 Urine Urobilinogen Normal (NORMAL) 05/19/23 09:11 Ur Leukocyte Esterase 3+ (NEGATIVE) 05/19/23 09:11 Urine RBC 20-30 /HPF (0-3) A 05/19/23 09:11 Urine WBC 10-20 /HPF (0-5) A 05/19/23 09:11 Ur Squamous Epith Cells Rare /HPF (NEGATIVE) 05/19/23 09:11 Amorphous Sediment 2+ /HPF (NEGATIVE) 05/19/23 09:11 Urine Bacteria Trace /HPF (NEGATIVE) 05/19/23 09:11 Ur Culture Indicated? Yes/culture set up 05/19/23 09:11 Opioid Opioid Risk Tool Age (J Luis box if 16-45): No History of Preadolescent Sexual Abuse: No Total: 0 Total Score Risk Category: Low Risk Copyright: Manjit SANTOYO predicting aberrant behaviors Discharge Plan Diagnosis Discharge Problem: Acute pyelonephritis, AMS (altered mental status) Discharge Plan Patient Disposition: ADMITTED INPATIENT Condition: Stable
[2023-05-19 09:33] LABS: BILIRUBIN,URINE NEGATIVE (NEGATIVE); BLOOD/HEMOGLOBIN,URINE 5+ (NEGATIVE); GLUCOSE, URINE NEGATIVE (NEGATIVE); KETONES,URINE NEGATIVE (NEGATIVE); LEUKOCYTE ESTERASE ,URINE 3+ (NEGATIVE); NITRITES,URINE NEGATIVE (NEGATIVE); PROTEIN,URINE 3+ (NEGATIVE); UROBILINOGEN,URINE NORMAL (NORMAL)
[2023-05-19 09:35] LABS: APPEARANCE,URINE CLOUDY (CLEAR); COLOR,URINE DARK YELLOW (YELLOW)
[2023-05-19 09:39] LABS: RBC,URINE 20-30 /HPF (0-3)
[2023-05-19 09:40] LABS: BACTERIA,URINE TRACE /HPF (NEGATIVE); SQUAMOUS EPITHELIAL CELL,UR RARE /HPF (NEGATIVE)
[2023-05-19] MEDS ORDERED: NS 1,000 ML IV 1,000 ML ONE (10:08)
[2023-05-19] MEDS: NS 1,000 ML IV 1,000 ML IV SCH (10:12)
[2023-05-19 10:23] LABS: BASOPHILS % (AUTO) 0.6 % (0.2-1.0); EOSINOPHILS # (AUTO) 0.2 x10^3/uL (0.0-0.2); EOSINOPHILS % (AUTO) 4.2 % (0.9-2.9); HEMATOCRIT 36.2 % (36.0-47.0); HEMOGLOBIN 11.8 g/dL (12.0-16.0); LYMPHOCYTES # (AUTO) 0.7 X10^3/uL (1.3-2.9); LYMPHOCYTES % (AUTO) 15.6 % (21.0-51.0); MEAN CORPUSCULAR HEMOGLOBIN 28.5 pg (27.0-34.0); MEAN CORPUSCULAR HGB CONC 32.7 g/dL (33.0-35.0); MEAN CORPUSCULAR VOLUME 87.2 fL (80.0-100.0); MEAN PLATELET VOLUME 8.6 fL (7.4-11.0); MONOCYTES # (AUTO) 0.5 x10^3/uL (0.3-0.8); MONOCYTES % (AUTO) 9.8 % (0.0-13.0); NEUTROPHILS # (AUTO) 3.3 x10^3/uL (2.2-4.8); NEUTROPHILS % (AUTO) 69.8 % (42.0-75.0); PLATELET COUNT 261 X10^3/uL (150.0-450.0); RED BLOOD COUNT 4.15 X10^6/uL (3.5-5.4); RED CELL DISTRIBUTION WIDTH 15.2 % (11.6-16.5); WHITE BLOOD COUNT 4.7 X10^3/uL (3.6-10.0)
[2023-05-19 10:59] LABS: ALANINE AMINOTRANSFERASE 15 Units/L (12-78); ALBUMIN 3.2 g/dL (3.4-5.0); ALKALINE PHOSPHATASE 51 Units/L (46-116); ASPARTATE AMINO TRANSFERASE 22 Units/L (15-37); BLOOD UREA NITROGEN 30 mg/dL (7-18); CALCIUM 9.5 mg/dL (8.5-10.1); CARBON DIOXIDE 29.5 mmol/L (21-32); CHLORIDE 105 mmol/L (98-107); COR CA(FOR HYPOALB) 10.1 mg/dL (8.5-10.1); COR NA(FOR HYPERGLY) 142 mmol/L (136-145); GLUCOSE 117 mg/dL (65-99); POTASSIUM 4.1 mmol/L (3.5-5.1); SODIUM 142 mmol/L (136-145); TOTAL PROTEIN 6.7 g/dL (6.4-8.2); eGFR NON BLACK RACES > 60 (>60)
[2023-05-19] MEDS ORDERED: INVanz INJ 1 GRAM VIAL IV ONE (11:48)
[2023-05-19] MEDS ORDERED: INVanz INJ 1 GRAM VIAL ONE (11:48)
--- NOTE | 2023-05-19 12:47 | CT ---
EXAM:BRAIN W/O CONHISTORY:ALTERED MENTAL STATUS;COMPARISON:March 2023TECHNIQUE:Multiple axial images of the brain were obtained from the skull base to the vertex without administration of IV contrast. Dose reduction techniques including Automated Exposure Control (AEC) and adjustment of mA and kV were utilized.FINDINGS:No acute intraparenchymal hemorrhage or mass can be identified. No extra-axial fluid collections are seen. No alteration in the attenuation of the brain parenchyma can be identified to suggest acute or subacute ischemic change. Moderate small-vessel ischemic changes and age-appropriate atrophy are noted. The ventricular system is symmetric and nondilated. The extracranial structures appear unremarkable.IMPRESSION:1. No acute intracranial process can be identified.THIS IS AN ELECTRONICALLY VERIFIED FINAL [id number]/19/2023 12:43 PM - Electronically signed by Donta Infante MD
[2023-05-19] MEDS ORDERED: ULTRAM PO ONE (12:55)
[2023-05-19] MEDS ORDERED: ULTRAM ONE (12:57)
--- NOTE | 2023-05-19 13:48 | RAD ---
EXAM:Portable AP chestHISTORY:Fever AMSCOMPARISON:None availableFINDINGS:The heart is not significantly enlarged. The lungs and pleural spaces are clear. There is no evidence for CHF or pneumonia.IMPRESSION:No acute chest findings.THIS IS AN ELECTRONICALLY VERIFIED FINAL [id number]/2023 1:38 PM - Electronically signed by Lars Aranda MD
--- NOTE | 2023-05-19 14:08 | CT ---
EXAM:ABDOMEN/PELVIS W/O CONHISTORY:HematuriaTECHNIQUE:Axial noncontrast images with coronal and sagittal reformats. Dose reduction procedures were used with mA/kv adjusted for body size. This examination is limited due to the lack of intravenous contrast. The examination was performed in this manner at the sole discretion of the ordering caregiver.COMPARISON:11/24/2020FINDINGS: Lung bases are clear. The liver, spleen, adrenal glands, and pancreas was within normal limits to the limitations of an unenhanced examination. Patient is status post cholecystectomy. Kidneys are unobstructed but demonstrate multiple bilateral nonobstructing renal calculi. There is also a right renal cyst present. No ureteral calculi are identified. Calcific atherosclerotic changes present in an ectatic but nondilated abdominal aorta. No intraperitoneal or retroperitoneal lymphadenopathy is identified. The appendix is not identified with absolute certainty. There are no secondary signs of appendicitis present. There are no findings suggestive of enteritis, colitis or diverticulitis. Examination of the pelvis demonstrated no evidence for pelvic masses, pelvic fluid, or pelvic lymphadenopathy. The bladder is distended. There is a focus of increased attenuation in the left posterior dependent portion of the bladder. This could represent either a partially calcified bladder calculus or a partially calcified mucosal mass. If it is a mucosal mass it likely represents a bladder carcinoma. Urologic evaluation is recommended. No lytic or blastic skeletal lesions of significance are identified. Diffuse skeletal osteopenia is present.IMPRESSION:Multiple bilateral nonobstructing renal calculi2.4 by 1.4 cm area of increased attenuation in the right side of the base of the bladder representing either a partially calcified bladder calculus or a partially calcified bladder neoplasm. Carcinoma is possible. Urologic evaluation strongly recommended.THIS IS AN ELECTRONICALLY VERIFIED FINAL [id number]/19/2023 2:04 PM - Electronically signed by Carlos Reilly MD
[2023-05-19] MEDS ORDERED: CONSULT PHARMACY - POTASSIUM & MAGNESIUM XX SCH (17:00)
[2023-05-19] MEDS: MAG-OX TAB PO SCH ×2 (17:37→19:05)
[2023-05-19] MEDS ORDERED: ULTRAM PO PRN (17:59)
[2023-05-20] MEDS: NS 1,000 ML IV 1,000 ML IV SCH ×4 (01:32→19:00)
[2023-05-20 05:36] LABS: BASOPHILS % (AUTO) 0.8 % (0.2-1.0); EOSINOPHILS # (AUTO) 0.1 x10^3/uL (0.0-0.2); EOSINOPHILS % (AUTO) 3.3 % (0.9-2.9); HEMATOCRIT 33.8 % (36.0-47.0); LYMPHOCYTES # (AUTO) 0.7 X10^3/uL (1.3-2.9); LYMPHOCYTES % (AUTO) 18.3 % (21.0-51.0); MEAN CORPUSCULAR HGB CONC 32.4 g/dL (33.0-35.0); MEAN CORPUSCULAR VOLUME 86.3 fL (80.0-100.0); MONOCYTES # (AUTO) 0.4 x10^3/uL (0.3-0.8); MONOCYTES % (AUTO) 9.4 % (0.0-13.0); NEUTROPHILS # (AUTO) 2.7 x10^3/uL (2.2-4.8); NEUTROPHILS % (AUTO) 68.2 % (42.0-75.0); PLATELET COUNT 270 X10^3/uL (150.0-450.0); RED BLOOD COUNT 3.92 X10^6/uL (3.5-5.4); RED CELL DISTRIBUTION WIDTH 14.4 % (11.6-16.5)
[2023-05-20 05:51] LABS: ALANINE AMINOTRANSFERASE 13 Units/L (12-78); ALBUMIN 2.9 g/dL (3.4-5.0); ALKALINE PHOSPHATASE 44 Units/L (46-116); ASPARTATE AMINO TRANSFERASE 19 Units/L (15-37); BLOOD UREA NITROGEN 28 mg/dL (7-18); CARBON DIOXIDE 24.4 mmol/L (21-32); CHLORIDE 109 mmol/L (98-107); COR CA(FOR HYPOALB) 9.9 mg/dL (8.5-10.1); COR NA(FOR HYPERGLY) 144 mmol/L (136-145); CREATININE 0.65 mg/dL (0.55-1.02); GLUCOSE 111 mg/dL (65-99); MAGNESIUM 1.9 mg/dL (2.0-2.9); POTASSIUM 3.7 mmol/L (3.5-5.1); SODIUM 144 mmol/L (136-145); TOTAL PROTEIN 6.2 g/dL (6.4-8.2); eGFR NON BLACK RACES > 60 (>60)
[2023-05-20] MEDS ORDERED: CONSULT PHARMACY - POTASSIUM & MAGNESIUM XX SCH (07:00)
[2023-05-20] MEDS ORDERED: PHARMACY CONSULT LTC MEDICATIONS XX SCH (08:00)
[2023-05-20] MEDS: MAG-OX TAB PO SCH ×2 (08:56→11:30)
[2023-05-20] MEDS: INVanz INJ 1 GRAM VIAL 1 G in NS 100 ML IV 100 ML IV SCH (08:56)
[2023-05-20] MEDS ORDERED: K-DUR TAB 20 MEQ PO SCH (09:00)
[2023-05-20] MEDS ORDERED: TYLENOL 325 MG TAB PO PRN (09:56)
[2023-05-20] MEDS ORDERED: PHARMACY CONSULT - TPN XX SCH (10:00)
[2023-05-20] MEDS: ULTRAM PO PRN ×2 (10:37→15:36)
[2023-05-20 10:44] LABS: BILIRUBIN,URINE NEGATIVE (NEGATIVE); BLOOD/HEMOGLOBIN,URINE 5+ (NEGATIVE); GLUCOSE, URINE NEGATIVE (NEGATIVE); KETONES,URINE 1+ (NEGATIVE); LEUKOCYTE ESTERASE ,URINE 2+ (NEGATIVE); NITRITES,URINE NEGATIVE (NEGATIVE); PROTEIN,URINE 3+ (NEGATIVE); UROBILINOGEN,URINE NORMAL (NORMAL)
[2023-05-20 10:57] LABS: APPEARANCE,URINE HAZY (CLEAR); BACTERIA,URINE TRACE /HPF (NEGATIVE); COLOR,URINE BLOODY (YELLOW); RBC,URINE TNTC /HPF (0-3); SQUAMOUS EPITHELIAL CELL,UR RARE /HPF (NEGATIVE); TRIPLE PHOSPHATE CRYSTAL,UR FEW /HPF (NEGATIVE)
[2023-05-20] MEDS ORDERED: ALTACE 2.5 MG CAP PO SCH (11:00)
[2023-05-20] MEDS ORDERED: GLUCOPHAGE ONE (11:16)
[2023-05-20] MEDS: ECOTRIN TAB 325 MG PO SCH (11:29)
[2023-05-20] MEDS: PROTONIX TAB 40 MG PO SCH ×2 (11:30→21:52)
[2023-05-20] MEDS: GLUCOPHAGE PO SCH (11:30)
[2023-05-20] MEDS: FOLIC ACID TAB 1 MG PO SCH (11:30)
[2023-05-20] MEDS: PLAVIX PO SCH (11:30)
[2023-05-20] MEDS: ALBUMIN HUMAN 25%- 100 ML 100 ML IV SCH (11:31)
[2023-05-20] MEDS ORDERED: DRUG FILTER EXTENSION SET ONE ×2 (14:37→15:12)
[2023-05-20] MEDS: CLINIMIX 4.25%-5% 1,000 ML with MVI INJ (ADULT) 10 ML IV SCH ×2 (14:49)
--- NOTE | 2023-05-20 16:08 | DR.H&P ---
H&P - History & Physical for Day of: H&P Date: 05/19/23 - Chief Complaint Chief Complaint: ALTERED MENTAL STATUS, DYSURIA - History of Present Illness History of Present Illness: IS A 88 YEAR OLD PATIENT OF OURS. SHE IS A RESIDENT OF [facility]. SHE HAS A PMH OF DM II, HTN, PUD, ARTHRITIS, CHOLECYSTECTOMY, HYSTERECTOMY, JOINT REPLACEMENT, TONSILLECTOMY. SHE WAS BROUGHT OVER TO THE ER FOR EVALUATION DUE TO ALTERED MENTAL STATUS AND DECREASED RESPONSIVENESS. HALF-WAY STAFF REPORTS THAT PATIENT WAS FOUND SITTING UP IN BED IN A STIFF POSITION WITH HER ARMS AND LEGS OUTSTRETCHED. ON ARRIVAL TO THE HOSPITAL, SHE WAS SLUGGISH TO RESPOND VERBALLY, BUT RESPONSES WERE APPROPRIATE. HALF-WAY STAFF AND PATIENTS DAUGHTER DENY KNOWLEDGE OF ANY RECENT ILLNESS, FALLS, OR MED CHANGES. PATIENTS DAUGHTER REPORT THAT WHEN THEY LIFTED HER TO PLACE INTO THE WHEELCHAIR, FOUL SMELL OF URINE WAS NOTED. PATIENT DID ADMIT TO BURNING AND PAINFUL URINATION. HER VITALS ON ARRIVAL WERE: 97.8-98-18-100%-113/69. LABS WERE OBTAINED. WBC 4.7, RBC 4.15, HGB 11.8, HCT 36.2, PLT COUNT 261, SODIUM 142, POTASSIUM 4.1, CHLORIDE 105, BUN 30, CREATININE 0.80, GLUCOSE 117, CALCIUM 9.5, TOTAL BILI 0.40, AST 22, ALT 15, ALK PHOS 51, CREATINE KINASE 33, TROPONIN 4.3, TOTAL PROTEIN 6.7, ALBUMIN 3.2. A URINALYSIS WAS OBTAINED AND REVEALED: RBC 20-30, WBC 10-20, BACTERIA TRACE, LEUKOCYTES 3+. A URINE CULTURE AND BLOOD CULTURES WERE SET UP. EKG WAS OBTAINED AND REVEALED: NORMAL SINUS RHYTHM WITH HR 100 BPM. A CHEST XRAY WAS OBTAINED AND REVEALED: NO ACUTE CHEST FINDINGS. IN THE ER, SHE WAS GIVEN VALIUM 5MG IV X 1, MAGNESIUM 1G IV X 1, ROCEPHIN 1G IV X 1. SHE WAS ADMITTED TO THE HOSPITAL FOR FURTHER EVALUATION AND TREATMENT OF ACUTE TIA, AMS, HTN, DM II. SHE WAS STARTED ON D51/2 NS AT 80 ML/HR, ROCEPHIN 1G IV DAILY, LOVENOX 40MG SC DAILY, OTBS ACHS, PROTONIX 40MG IV DAILY. AN ABDOMEN/PELVIS CT WITHOUT CONTRAST WAS OBTAINED AND REVEALED: Multiple bilateral nonobstructing renal calculi 2.4 by 1.4 cm area of increased attenuation in the right side of the base of the bladder representing either a partially calcified bladder calculus or a partially calcified bladder neoplasm. Carcinoma is possible. Urologic evaluation strongly recommended. A BRAIN CT WITHOUT CONTRAST WAS OBTAINED AND REVEALED: 1. No acute intracranial process can be identified. IN THE ER, SHE WAS GIVEN INVANZ 1G IV X 1, ULTRAM 50MG X 1 DOSE. SHE WAS ADMITTED TO THE HOSPITAL OBSERVATION STATUS FOR FURTHER EVALUATION AND TREATMENT OF PYLONEPHRITIS AND ALTERED MENTAL STATUS. SHE WAS STARTED ON NORMAL SALINE AT 35 ML/HR, TPN AT 40 ML/HR, ALBUMIN 25% IV DAILY, INVANZ 1G IV DAILY, AND TYLENOL 650MG PO Q4H PRN. HER HOME MEDICATIONS OF ALPRAZOLAM, ECOTRIN, CELEXA, PLAVIX, TRICOR, FOLIC ACID, GLUCOPHAGE, PROTONIX, CRESTOR, AND ULTRAM WERE RESUMED. OTHERWISE, WE WILL FOLLOW-UP WITH AM LABS AND CONTINUE TO MONITOR. TIME SPENT ON CLINICAL ASSESSMENT, REVIEWING LABS AND IMAGING, DECISION MAKING, AND DOCUMENTATION GREATER THAN 75 MINUTES. - Past Medical History Past Medical History: Coronary Artery Disease, Hypertension, Dyslipidemia, Diabetes, Depression, Anxiety, Anemia, CVA, GERD, Arthritis Additional Medical History: Gastritis, Occasional urinary incontinence, Osteoarthritis, Back Pain, Cataracts - Past Surgical History Surgical History: Cholecystectomy, Hysterectomy, Joint Replacement, Ortho Surgery, Other, Tonsillectomy Additional Surgical History: Right knee Tka, Carpal tunnel release right hand, Cataract surgery - Family History Family Medical History: Diabetes Mellitus, [place], Coronary Artery Disease, Sudden Cardiac , Hypertension - Social History Does patient currently use any type of tobacco product: No Have you used tobacco products in the last 12 months: No Alcohol Use: None Drug Use: None - Review of Systems Constitutional: Weakness Eyes: No Symptoms Reported ENT: No Symptoms Reported Respiratory: No Symptoms Reported Cardiovascular: No Symptoms Reported Gastrointestinal: Nausea Genitourinary: Dysuria Musculoskeletal: No Symptoms Reported Skin: No Symptoms Reported Neurological: Weakness - Physical Exam Vital Signs: Vital Signs Temperature 97.0 F Pulse Rate [Left Brachial] 101 Respiratory Rate 20 Respiratory Rate 18 Respiratory Rate 18 Respiratory Rate 18 Blood Pressure [Left Arm] 123/76 O2 Sat by Pulse Oximetry 100 Oriented: Normal Eyes: Normal Ear: Normal Nose: Normal Throat: Normal Respiratory: Diminished Throughout Cardiovascular: Normal : Normal Auscultation: Bowel Sounds: Normal Palpation: Normal Tenderness: Suprapubic Skin: Normal Musculoskeletal: Normal Psychiatric: Normal Mood Description: Calm Affect: Normal Speech Pattern: Clear - Assessment/Plan (1) Pyelonephritis Status: Acute Plan: ADMIT, NORMAL SALINE AT 35 ML/HR, TPN AT 40 ML/HR, ALBUMIN 25% IV DAILY, INVANZ 1G IV DAILY, AND TYLENOL 650MG PO Q4H PRN. HER HOME MEDICATIONS OF ALPRAZOLAM, ECOTRIN, CELEXA, PLAVIX, TRICOR, FOLIC ACID, GLUCOPHAGE, PROTONIX, CRESTOR, AND ULTRAM WERE RESUMED. (2) Altered mental status Qualifiers: Altered mental status type: transient alteration of awareness Qualified Code(s): R40.4 - Transient alteration of awareness Status: Acute (3) GERD (gastroesophageal reflux disease) Qualifiers: Esophagitis presence: esophagitis presence not specified Qualified Code(s): K21.9 - Gastro-esophageal reflux disease without esophagitis Status: Chronic (4) Depression Qualifiers: Depression Type: major depressive disorder Major depression recurrence: recurrent Active/Remission status: remission status unspecified Qualified Code(s): F33.9 - Major depressive disorder, recurrent, unspecified Status: Chronic - Allergies Allergies/Adverse Reactions: Allergies Allergy/AdvReac Type Severity Reaction Status Date / Time celecoxib [Celebrex] Allergy Unknown Verified 05/19/23 09:04 ketorolac [From Toradol] Allergy Unknown Swelling Verified 05/19/23 09:04 Sulfa (Sulfonamide Allergy Unknown Verified 05/19/23 09:04 Antibiotics) [SULFA] - Medications Home Medications: Home Medications Medication Instructions Recorded Confirmed alprazolam 0.5 mg tablet 0.25 mg PO HS 04/13/19 05/19/23 citalopram 40 mg tablet 40 mg PO DAILY 04/13/19 05/19/23 pantoprazole 40 mg tablet,delayed 40 mg PO BID 04/13/19 05/19/23 release ramipril 1.25 mg capsule 1.25 mg PO DAILY 04/13/19 05/19/23 metformin 500 mg tablet 500 mg PO DAILY 12/03/21 05/19/23 fenofibrate 160 mg tablet 160 mg PO HS 01/14/23 05/19/23 folic acid 1 mg tablet 1 mg PO DAILY 01/14/23 05/19/23 acetaminophen 325 mg tablet 650 mg PO Q4H PRN 04/28/23 05/19/23 (Tylenol) insulin regular human 100 unit/mL See Rx Instructions .Route .COMPLEX 04/28/23 05/19/23 injection solution (Novolin R Regular U-100 Insulin) rosuvastatin 20 mg tablet 20 mg PO QPM 04/28/23 05/19/23 Previous Rx's Medication Instructions Recorded aspirin 325 mg tablet,delayed 325 mg PO DAILY 01/17/23 release clopidogrel 75 mg tablet 75 mg PO QDAY #30 tabs 01/17/23 magnesium oxide 400 mg (241.3 mg 400 mg PO BID 01/17/23 magnesium) tablet tramadol 50 mg tablet 50 mg PO QID PRN pain #120 tabs 04/29/23
[2023-05-20] MEDS: XANAX PO PRN (21:51)
[2023-05-20] MEDS: TRICOR TAB 160 MG PO SCH (21:51)
[2023-05-20] MEDS: CRESTOR TAB 10 MG PO SCH (21:52)
[2023-05-21] MEDS: NS 1,000 ML IV 1,000 ML IV SCH ×2 (05:07→21:00)
[2023-05-21 05:41] LABS: EOSINOPHILS # (AUTO) 0.2 x10^3/uL (0.0-0.2); EOSINOPHILS % (AUTO) 6.6 % (0.9-2.9); HEMATOCRIT 30.9 % (36.0-47.0); HEMOGLOBIN 10.1 g/dL (12.0-16.0); LYMPHOCYTES # (AUTO) 0.8 X10^3/uL (1.3-2.9); LYMPHOCYTES % (AUTO) 20.7 % (21.0-51.0); MEAN CORPUSCULAR HEMOGLOBIN 28.2 pg (27.0-34.0); MEAN CORPUSCULAR HGB CONC 32.7 g/dL (33.0-35.0); MEAN CORPUSCULAR VOLUME 86.1 fL (80.0-100.0); MEAN PLATELET VOLUME 8.8 fL (7.4-11.0); MONOCYTES # (AUTO) 0.3 x10^3/uL (0.3-0.8); MONOCYTES % (AUTO) 8.9 % (0.0-13.0); NEUTROPHILS # (AUTO) 2.3 x10^3/uL (2.2-4.8); NEUTROPHILS % (AUTO) 62.8 % (42.0-75.0); PLATELET COUNT 222 X10^3/uL (150.0-450.0); RED BLOOD COUNT 3.59 X10^6/uL (3.5-5.4); RED CELL DISTRIBUTION WIDTH 14.6 % (11.6-16.5); WHITE BLOOD COUNT 3.7 X10^3/uL (3.6-10.0)
[2023-05-21 05:58] LABS: ALANINE AMINOTRANSFERASE 14 Units/L (12-78); ALBUMIN 3.1 g/dL (3.4-5.0); ALKALINE PHOSPHATASE 42 Units/L (46-116); ASPARTATE AMINO TRANSFERASE 18 Units/L (15-37); BLOOD UREA NITROGEN 19 mg/dL (7-18); CALCIUM 8.4 mg/dL (8.5-10.1); CARBON DIOXIDE 23.1 mmol/L (21-32); CHLORIDE 107 mmol/L (98-107); COR CA(FOR HYPOALB) 9.1 mg/dL (8.5-10.1); CREATININE 0.57 mg/dL (0.55-1.02); GLUCOSE 105 mg/dL (65-99); POTASSIUM 3.3 mmol/L (3.5-5.1); SODIUM 141 mmol/L (136-145); eGFR NON BLACK RACES > 60 (>60)
[2023-05-21] MEDS ORDERED: CONSULT PHARMACY - POTASSIUM & MAGNESIUM XX SCH (07:00)
[2023-05-21] MEDS ORDERED: PHARMACY COMMENT PO SCH (09:00)
[2023-05-21] MEDS ORDERED: GLUCOPHAGE ONE (09:04)
[2023-05-21] MEDS: PROTONIX TAB 40 MG PO SCH ×2 (09:45→21:08)
[2023-05-21] MEDS: ALBUMIN HUMAN 25%- 100 ML 100 ML IV SCH (09:49)
[2023-05-21] MEDS: CELEXA PO SCH (09:49)
[2023-05-21] MEDS: CLINIMIX 4.25%-5% 1,000 ML with MVI INJ (ADULT) 10 ML IV SCH ×4 (09:49→19:15)
[2023-05-21] MEDS: ECOTRIN TAB 325 MG PO SCH (09:50)
[2023-05-21] MEDS: GLUCOPHAGE PO SCH (09:51)
[2023-05-21] MEDS: INVanz INJ 1 GRAM VIAL 1 G in NS 100 ML IV 100 ML IV SCH (09:51)
[2023-05-21] MEDS: K-DUR TAB 20 MEQ PO SCH (09:51)
[2023-05-21] MEDS: FOLIC ACID TAB 1 MG PO SCH (09:51)
[2023-05-21] MEDS: MAG-OX TAB PO SCH (10:00)
[2023-05-21] MEDS: PLAVIX PO SCH (10:01)
[2023-05-21] MEDS: ULTRAM PO PRN (10:35)
[2023-05-21] MEDS: SOLU-Medrol 40 MG VIAL IVP SCH ×2 (10:35→22:53)
[2023-05-21] MEDS: CRESTOR TAB 10 MG PO SCH (21:07)
[2023-05-21] MEDS: MILK OF MAGNESIA PO SCH (21:07)
[2023-05-21] MEDS: COLACE CAP 100 MG PO SCH (21:07)
[2023-05-21] MEDS: TRICOR TAB 160 MG PO SCH (21:08)
[2023-05-21] MEDS: XANAX PO PRN (21:08)
[2023-05-22] MEDS: NS 1,000 ML IV 1,000 ML IV SCH ×2 (03:57→10:44)
[2023-05-22 06:07] LABS: BASOPHILS # (AUTO) 0.1 X10^3/uL (0.0-0.1); BASOPHILS % (AUTO) 1.2 % (0.2-1.0); EOSINOPHILS # (AUTO) 0.4 x10^3/uL (0.0-0.2); EOSINOPHILS % (AUTO) 7.8 % (0.9-2.9); HEMATOCRIT 32.1 % (36.0-47.0); HEMOGLOBIN 10.6 g/dL (12.0-16.0); LYMPHOCYTES # (AUTO) 0.9 X10^3/uL (1.3-2.9); LYMPHOCYTES % (AUTO) 17.4 % (21.0-51.0); MEAN CORPUSCULAR HEMOGLOBIN 28.4 pg (27.0-34.0); MEAN CORPUSCULAR HGB CONC 33.1 g/dL (33.0-35.0); MEAN CORPUSCULAR VOLUME 85.9 fL (80.0-100.0); MEAN PLATELET VOLUME 8.6 fL (7.4-11.0); MONOCYTES # (AUTO) 0.6 x10^3/uL (0.3-0.8); MONOCYTES % (AUTO) 11.3 % (0.0-13.0); NEUTROPHILS # (AUTO) 3.2 x10^3/uL (2.2-4.8); NEUTROPHILS % (AUTO) 62.3 % (42.0-75.0); PLATELET COUNT 240 X10^3/uL (150.0-450.0); RED BLOOD COUNT 3.73 X10^6/uL (3.5-5.4); RED CELL DISTRIBUTION WIDTH 14.5 % (11.6-16.5); WHITE BLOOD COUNT 5.1 X10^3/uL (3.6-10.0)
[2023-05-22] MEDS: SOLU-Medrol 40 MG VIAL IVP SCH ×4 (06:15→21:01)
[2023-05-22 06:17] LABS: ALANINE AMINOTRANSFERASE 14 Units/L (12-78); ALBUMIN 3.6 g/dL (3.4-5.0); ALKALINE PHOSPHATASE 43 Units/L (46-116); ASPARTATE AMINO TRANSFERASE 17 Units/L (15-37); BLOOD UREA NITROGEN 18 mg/dL (7-18); CALCIUM 9.3 mg/dL (8.5-10.1); CARBON DIOXIDE 27.1 mmol/L (21-32); CHLORIDE 104 mmol/L (98-107); CREATININE 0.54 mg/dL (0.55-1.02); GLUCOSE 104 mg/dL (65-99); POTASSIUM 3.6 mmol/L (3.5-5.1); SODIUM 139 mmol/L (136-145); TOTAL PROTEIN 6.6 g/dL (6.4-8.2); eGFR NON BLACK RACES > 60 (>60)
[2023-05-22] MEDS ORDERED: CONSULT PHARMACY - POTASSIUM & MAGNESIUM XX SCH (09:00)
--- NOTE | 2023-05-22 09:53 | RAD ---
EXAM:WRIST, RIGHTHISTORY:RIGHT WRIST PAIN AND SWELLING;COMPARISON:None available.FINDINGS:No evidence for acute cortical disruption or dislocation can be identified. The carpal bones appear well aligned. Mild degenerative changes of the 1st metacarpal carpal joint space are observed consistent with osteoarthritis. The visualized portions of the distal radius and ulna are unremarkable. No significant soft tissue abnormality can be identified.IMPRESSION:Mild degenerative changes of the 1st metacarpal carpal joint space are observed consistent with osteoarthritis. No acute abnormality can be identified.THIS IS AN ELECTRONICALLY VERIFIED FINAL [id number]/22/2023 9:50 AM - Electronically signed by Venancio العراقي MD
[2023-05-22] MEDS ORDERED: KLOR-CON PO SCH (10:00)
[2023-05-22] MEDS ORDERED: GLUCOPHAGE ONE (10:27)
[2023-05-22] MEDS ORDERED: DRUG FILTER EXTENSION SET ONE (10:34)
[2023-05-22] MEDS: ALBUMIN HUMAN 25%- 100 ML 100 ML IV SCH (10:39)
[2023-05-22] MEDS: INVanz INJ 1 GRAM VIAL 1 G in NS 100 ML IV 100 ML IV SCH (10:39)
[2023-05-22] MEDS: [UNRECOGNIZED DRUG - OTHER] IV SCH ×4 (10:41)
[2023-05-22] MEDS: MVI IV SCH ×4 (10:41)
[2023-05-22] MEDS: CELEXA PO SCH (10:41)
[2023-05-22] MEDS: CLINIMIX IV SCH ×4 (10:41)
[2023-05-22] MEDS: ECOTRIN TAB 325 MG PO SCH (10:42)
[2023-05-22] MEDS: FOLIC ACID TAB 1 MG PO SCH (10:42)
[2023-05-22] MEDS: PATIENT'S HOME MEDICATION PO SCH (10:44)
[2023-05-22] MEDS: GLUCOPHAGE PO SCH (10:44)
[2023-05-22] MEDS: PLAVIX PO SCH (10:44)
[2023-05-22] MEDS: MILK OF MAGNESIA PO SCH ×2 (10:44→20:59)
[2023-05-22] MEDS: PROTONIX TAB 40 MG PO SCH ×2 (10:44→20:59)
[2023-05-22] MEDS: MAG-OX TAB PO SCH ×3 (10:50→21:01)
[2023-05-22] MEDS ORDERED: NovoLIN R (or HumuLIN R) SUBCUT PRN (19:24)
[2023-05-22] MEDS ORDERED: SNACK - Diabetic Appropriate PO SCH (20:00)
[2023-05-22] MEDS: TRICOR TAB 160 MG PO SCH (20:57)
[2023-05-22] MEDS: XANAX PO PRN (20:57)
[2023-05-22] MEDS: CRESTOR TAB 10 MG PO SCH (20:58)
[2023-05-22] MEDS: COLACE CAP 100 MG PO SCH (20:59)
[2023-05-22] MEDS: K-DUR TAB 20 MEQ PO SCH (21:02)
[2023-05-22] MEDS: ULTRAM PO PRN (21:27)
[2023-05-23] MEDS ORDERED: DRUG FILTER EXTENSION SET ONE (01:19)
[2023-05-23] MEDS: NS 1,000 ML IV 1,000 ML IV SCH ×2 (01:29→14:15)
[2023-05-23] MEDS: SOLU-Medrol 40 MG VIAL IVP SCH ×2 (05:22→14:16)
[2023-05-23 06:19] LABS: BASOPHILS % (AUTO) 0.7 % (0.2-1.0); HEMATOCRIT 33.9 % (36.0-47.0); HEMOGLOBIN 11.2 g/dL (12.0-16.0); LYMPHOCYTES # (AUTO) 0.5 X10^3/uL (1.3-2.9); LYMPHOCYTES % (AUTO) 12.7 % (21.0-51.0); MEAN CORPUSCULAR HEMOGLOBIN 28.2 pg (27.0-34.0); MEAN CORPUSCULAR HGB CONC 33.1 g/dL (33.0-35.0); MEAN CORPUSCULAR VOLUME 85.4 fL (80.0-100.0); MEAN PLATELET VOLUME 8.7 fL (7.4-11.0); MONOCYTES # (AUTO) 0.2 x10^3/uL (0.3-0.8); NEUTROPHILS # (AUTO) 3.4 x10^3/uL (2.2-4.8); NEUTROPHILS % (AUTO) 82.6 % (42.0-75.0); PLATELET COUNT 290 X10^3/uL (150.0-450.0); RED BLOOD COUNT 3.97 X10^6/uL (3.5-5.4); RED CELL DISTRIBUTION WIDTH 14.4 % (11.6-16.5); WHITE BLOOD COUNT 4.1 X10^3/uL (3.6-10.0)
[2023-05-23 06:41] LABS: ALANINE AMINOTRANSFERASE 15 Units/L (12-78); ALBUMIN 3.5 g/dL (3.4-5.0); ALKALINE PHOSPHATASE 47 Units/L (46-116); ASPARTATE AMINO TRANSFERASE 19 Units/L (15-37); BLOOD UREA NITROGEN 19 mg/dL (7-18); CALCIUM 9.4 mg/dL (8.5-10.1); CARBON DIOXIDE 26.9 mmol/L (21-32); CHLORIDE 105 mmol/L (98-107); COR NA(FOR HYPERGLY) 142 mmol/L (136-145); CREATININE 0.55 mg/dL (0.55-1.02); GLUCOSE 177 mg/dL (65-99); MAGNESIUM 2.5 mg/dL (2.0-2.9); POTASSIUM 3.9 mmol/L (3.5-5.1); SODIUM 140 mmol/L (136-145); TOTAL PROTEIN 6.8 g/dL (6.4-8.2); eGFR NON BLACK RACES > 60 (>60)
[2023-05-23 09:02] VITALS: O2SAT 97
[2023-05-23] MEDS ORDERED: GLUCOPHAGE ONE (10:46)
[2023-05-23] MEDS: ALBUMIN HUMAN 25%- 100 ML 100 ML IV SCH (10:54)
[2023-05-23] MEDS: PROTONIX TAB 40 MG PO SCH (10:55)
[2023-05-23] MEDS: INVanz INJ 1 GRAM VIAL 1 G in NS 100 ML IV 100 ML IV SCH (10:55)
[2023-05-23] MEDS: PLAVIX PO SCH (10:55)
[2023-05-23] MEDS: GLUCOPHAGE PO SCH (10:55)
[2023-05-23] MEDS: CELEXA PO SCH (10:56)
[2023-05-23] MEDS: ECOTRIN TAB 325 MG PO SCH (10:56)
[2023-05-23] MEDS: PATIENT'S HOME MEDICATION PO SCH (10:56)
[2023-05-23] MEDS: MILK OF MAGNESIA PO SCH (10:56)
[2023-05-23] MEDS: [UNRECOGNIZED DRUG - OTHER] IV SCH ×8 (10:56→10:59)
[2023-05-23] MEDS: MVI IV SCH ×8 (10:56→10:59)
[2023-05-23] MEDS: FOLIC ACID TAB 1 MG PO SCH (10:56)
[2023-05-23] MEDS: CLINIMIX IV SCH ×8 (10:56→10:59)
[2023-05-23 13:33] VITALS: BP 143/83; PULSE 86; RESP 20; TEMP 98
== END 2023-05-23 14:20 | DRG 690 ==
LOC: ER 08:48 → MED/SURG 08:48 → ER 14:25 → MED/SURG 14:54
PROVIDERS: ADMIT Internal Medicine; ATTEND Internal Medicine
DX: I25.10 Atherosclerotic heart disease of native coronary artery without angina pectoris; R94.31 Abnormal electrocardiogram [ECG] [EKG]; Z79.01 Long term (current) use of anticoagulants; R41.82 Altered mental status, unspecified; E11.65 Type 2 diabetes mellitus with hyperglycemia; R30.0 Dysuria; N39.0 Urinary tract infection, site not specified; I10 Essential (primary) hypertension; E83.42 Hypomagnesemia; B96.89 Other specified bacterial agents as the cause of diseases classified elsewhere; N10 Acute pyelonephritis; Z73.89 Other problems related to life management difficulty; K21.9 Gastro-esophageal reflux disease without esophagitis; E78.2 Mixed hyperlipidemia

== ENCOUNTER 2025-05-16 12:14 | Inpatient (IN) ==
[2025-05-16] MEDS ORDERED: TYLENOL 325 MG TAB PO PRN (13:12)
[2025-05-16 13:42] LABS: MEAN PLATELET VOLUME 8.7 fL (7.4-11.0); RED CELL DISTRIBUTION WIDTH 17.4 % (11.6-16.5)
[2025-05-16 13:59] LABS: BAND NEUTROPHILS % 9 % (0-10); PLATELET MORPHOLOGY COMMENT NORMAL (NORMAL)
[2025-05-16] MEDS: PROTONIX INJ 40 MG VIAL IVP SCH (14:09)
[2025-05-16] MEDS: NORCO 5/325 MG TAB PO PRN (14:09)
[2025-05-16] MEDS: ZOFRAN INJ 4 MG VIAL IVP PRN (14:09)
[2025-05-16] MEDS: NS 1,000 ML IV 1,000 ML IV SCH (14:09)
[2025-05-16 14:12] LABS: COR CA(FOR HYPOALB) 10.6 mg/dL (8.5-10.1); COR NA(FOR HYPERGLY) 141.0 mmol/L (136-145); CREATININE 1.44 mg/dL (0.55-1.02); eGFR NON BLACK RACES 37.0 (>60)
--- NOTE | 2025-05-16 14:32 | EKG ---
Test Reason : high HR Blood Pressure : */* mmHG Vent. Rate : 179 BPM Atrial Rate : * BPM P-R Int : * ms QRS Dur : 78 ms QT Int : 278 ms P-R-T Axes : * 121 219 degrees QTc Int : 480 ms Supraventricular tachycardia Low voltage QRS Possible Inferior infarct (cited on or before 14-JAN-2023) Possible Anterolateral infarct (cited on or before 14-JAN-2023) Abnormal ECG When compared with ECG of 21-JUL-2024 14:55, Significant changes have occurred Confirmed by Toni Reyes ([id number]) on 05/17/2025 9:58:51 AM Referred By: Confirmed By: Toni Reyes
[2025-05-16] MEDS: LOPRESSOR INJ 5 MG AMP IVP ONE (14:52)
[2025-05-16 15:04] VITALS: BMI 23.3
[2025-05-16] MEDS: ZOSYN VIAL 3.375 GRAMS 3.375 G in NS 100 ML IV 100 ML IV SCH (16:06)
[2025-05-16] MEDS: LANOXIN INJ IVP SCH (16:06)
[2025-05-16] MEDS: MORPHINE SULFATE INJ 2 MG INJ IVP PRN (17:24)
[2025-05-16 18:08] LABS: BLOOD/HEMOGLOBIN,URINE 1+ (NEGATIVE); LEUKOCYTE ESTERASE ,URINE NEGATIVE (NEGATIVE); NITRITES,URINE NEGATIVE (NEGATIVE)
[2025-05-16 18:29] LABS: APPEARANCE,URINE CLEAR (CLEAR); SQUAMOUS EPITHELIAL CELL,UR FEW /HPF (NEGATIVE)
[2025-05-16 18:30] LABS: HYALINE CASTS, URINE NUMEROUS /LPF (NEGATIVE)
[2025-05-16] MEDS ORDERED: CYCLOBENZAPRINE 5 MG PO SCH (21:00)
[2025-05-16] MEDS: FLEXERIL TAB 10 MG PO SCH (21:03)
[2025-05-16] MEDS: CRESTOR TAB 10 MG PO SCH (21:03)
[2025-05-16] MEDS: HIPREX PO SCH (21:03)
[2025-05-16] MEDS: TRICOR TAB 160 MG PO SCH (21:03)
[2025-05-16] MEDS: CELEXA PO SCH (21:03)
[2025-05-17 05:57] LABS: MEAN PLATELET VOLUME 9.1 fL (7.4-11.0); RED CELL DISTRIBUTION WIDTH 17.8 % (11.6-16.5)
[2025-05-17 06:13] LABS: COR CA(FOR HYPOALB) 10.4 mg/dL (8.5-10.1); COR NA(FOR HYPERGLY) 143.0 mmol/L (136-145); CREATININE 1.11 mg/dL (0.55-1.02); eGFR NON BLACK RACES 49.0 (>60)
[2025-05-17 06:27] LABS: BAND NEUTROPHILS % 3 % (0-10); PLATELET MORPHOLOGY COMMENT NORMAL (NORMAL)
[2025-05-17] MEDS ORDERED: CONSULT PHARMACY - POTASSIUM & MAGNESIUM XX SCH (07:00)
--- NOTE | 2025-05-17 07:52 | RAD ---
EXAM: CHEST, 1 VIEW HISTORY: tachycardia; tachycardia COMPARISON: No relevant prior studies were available for comparison at the time of interpretation. TECHNIQUE: CHEST, 1 VIEW FINDINGS: Chest: Lines and tubes: Cardiac leads overlie the chest. Mediastinum: Cardiomegaly. Pulmonary vessels: No pulmonary vascular congestion. Lung carmona: There is a retrocardiac consolidation Pleura: No effusion. No pneumothorax. Bones and soft tissues: No acute osseous or soft tissue abnormality. IMPRESSION: 1. Retrocardiac consolidation suggests pneumonia versus pleural effusion THIS IS AN ELECTRONICALLY VERIFIED FINAL REPORT 05/17/2025 7:48 AM - Electronically signed by Lakhwinder Escobar MD
[2025-05-17] MEDS ORDERED: LOPRESSOR INJ 5 MG AMP ONE (08:01)
[2025-05-17] MEDS ORDERED: GLUCOPHAGE ONE (08:04)
[2025-05-17] MEDS: FOLIC ACID TAB 1 MG PO SCH (08:16)
[2025-05-17] MEDS: MAGNESIUM SULFATE 1 GRAM/100 mL PREMIX 1 G/100 ML BAG IV SCH (08:16)
[2025-05-17] MEDS: GLUCOPHAGE PO SCH (08:16)
[2025-05-17] MEDS: PLAVIX PO SCH (08:17)
[2025-05-17] MEDS: ASPIRIN EC 81 MG PO SCH (08:17)
[2025-05-17] MEDS: K-DUR TAB 20 MEQ PO SCH (08:17)
[2025-05-17] MEDS: LOPRESSOR INJ 5 MG AMP IVP ONE (08:19)
[2025-05-17] MEDS ORDERED: LANOXIN INJ IVP SCH (08:30)
--- NOTE | 2025-05-17 08:34 | DR.CONSULT ---
CONSULT Consultation for Day of: Date: 05/17/25 Chief Complaint Chief Complaint: abd pain Allergies Allergies Allergy/AdvReac Type Severity Reaction Status Date / Time ketorolac (From Toradol) Allergy Unknown Swelling Verified 10/04/24 11:19 Sulfa (Sulfonamide Allergy Unknown Verified 10/04/24 11:19 Antibiotics) (SULFA) celecoxib (From Celebrex) Allergy Verified 05/16/25 15:06 methylprednisolone (From Allergy Verified 05/16/25 15:06 Medrol) History of Present Illness History of Present Illness: 89 yo female [place] [facility] for abd pain and enzyme elevation c/w pancreatitis- found to have hr 180- ekg: SVT- suspect atrial tach due to rate- responded to iv lopressor which broke her quickly to nsr- had recurrence this am up to 200- broke maikel=ain with iv lopressor and vagal manuver. tsh yesterday ok- she unaware of fast hr- abd pain better today- was on po BB ( will increase) - i added iv digoxin which we will continue- last ef 45% 2022- will get echo- will consider AAT if continues to recur Past Medical History Past Medical History: Anemia, Anxiety, Asthma, Coronary Artery Disease, CVA, Depression, Diabetes, Dyslipidemia, GERD, Hypertension, PUD and Sleep Apnea Additional Medical History: Gastritis, Occasional urinary incontinence, Osteoarthritis, Back Pain, Cataracts Past Surgical History Surgical History: Hysterectomy Additional Surgical History: Right knee Tka, Carpal tunnel release right hand, Cataract surgery Family History Family Medical History: [place] and Coronary Artery Disease Social History Does any household member use tobacco: No Alcohol Use: None Drug Use: None Medications Home Medications: ketorolac (From Toradol) Allergy (Unknown, Verified 10/04/24 11:19) Swelling Sulfa (Sulfonamide Antibiotics) (SULFA) Allergy (Unknown, Verified 10/04/24 11:19) celecoxib (From Celebrex) Allergy (Verified 05/16/25 15:06) methylprednisolone (From Medrol) Allergy (Verified 05/16/25 15:06) CONTINUE taking the following medications diclofenac sodium 1 % topical gel 1 ea topical QID 05/16/25 [History] doxycycline hyclate 100 mg capsule 100 mg PO BID 05/16/25 [History] magnesium hydroxide 400 mg/5 mL oral suspension (Milk of Magnesia) 30 ml PO Q OTHER DAY 05/16/25 [History] peg [id number] 1 %-0.2 %-0.2 % eye drops (Artificial Tears ([id number])) 1 drp ophthalmic (eye) TID 05/16/25 [History] Physical Exam Vital Signs: Vital Signs Temperature 97.5 F Temperature 97.5 F Pulse Rate [Left Radial] 118 Pulse Rate [Left Radial] 118 Pulse Rate 100 Respiratory Rate 21 Respiratory Rate 24 Respiratory Rate 24 Blood Pressure [Left Arm] 130/86 Blood Pressure [Left Arm] 130/86 Blood Pressure 127/79 O2 Sat by Pulse Oximetry 95 O2 Sat by Pulse Oximetry 95 alert nad clera lungs tachy regular at 100 after svt no edema labs: wbc 19k hct 40 k 3.8 tsh ok bun 36 amylase 600 down from 1071 lipase 400 down from 1325 ekg: svt- suspect atrial tach cxr: ? pna/retrocardiac density/? effusion CT: retroperitoneal edema c/w pancreatitis Plan (1) SVT (supraventricular tachycardia): Status: Acute Plan: push BB/cont digoxin- check echo. iv lopressor/vagal manuvers if recurrence (2) Pancreatitis: Status: Acute
[2025-05-17] MEDS ORDERED: TOPROL XL PO SCH (09:00)
[2025-05-17] MEDS: TOPROL XL PO SCH (09:15)
[2025-05-17] MEDS: LOVENOX INJ 40 MG SYR SC SCH (09:15)
--- NOTE | 2025-05-17 11:00 | EKG ---
Test Reason : tachycardia Blood Pressure : */* mmHG Vent. Rate : 179 BPM Atrial Rate : * BPM P-R Int : * ms QRS Dur : 70 ms QT Int : 264 ms P-R-T Axes : * 242 221 degrees QTc Int : 455 ms Supraventricular tachycardia Low voltage QRS Inferior infarct (cited on or before 14-JAN-2023) Possible Anterolateral infarct (cited on or before 14-JAN-2023) Abnormal ECG When compared with ECG of 16-MAY-2025 14:29, Significant changes have occurred Confirmed by Tahir Jasso MD ([id number]) on 05/17/2025 12:00:24 PM Referred By: Confirmed By: Tahir Jasso MD
--- NOTE | 2025-05-17 11:04 | DR.H&P ---
H&P History & Physical for Day of: H&P Date: 05/17/25 Chief Complaint Chief Complaint: N/V and abdominal pain History of Present Illness History of Present Illness: Patient is a 89-year-old female with a past medical history of CAD, CVA, depression, hypertension, GERD and peptic ulcer disease who was directly admitted from [facility] due to worsening nausea, vomiting and abdominal pain. CTAP was done over there which showed possible pancreatitis and duodenitis. On presentation, patient was noted to have elevated tachycardia which was consistent with SVT. She was given IV metoprolol which did help bring her heart rate down to the 90s. Dr. Jasso was consulted, added IV digoxin. Patient's labs showed elevated WBC and lactic acid. Lipase was also elevated. She was started on hydration, pain control, n.p.o. except meds and IV antibiotics. This morning, she was noted to be back in SVT with heart rate in 200s. She did receive another dose of IV metoprolol. Cardiology increase metoprolol succinate to 50 mg. She has not had any nausea, vomiting and reports improvement in abdominal pain. Labs/imaging reviewed: - WBC 19.5 hemoglobin 13 potassium 3.8 magnesium 1.8 creatinine 1.11 lactic acid 1.5 - Lipase 400 - UA consistent with infection - Chest x-ray consistent with possible pneumonia versus effusion Plan: Admit to [facility] with telemetry. Monitor heart rate. Follow cardiology recommendations. Follow echo results. Replace electrolytes as per protocol. Continue IV antibiotics and hydration. Start clear liquid diet. Continue protonix. Resume home medications as appropriate. Monitor a.m. labs and imaging. Time spent for clinical assessment, reviewing labs/imaging, physical exam, decision making and documentation greater than 45 mins. Past Medical History Past Medical History: Anemia, Anxiety, Asthma, Coronary Artery Disease, CVA, Depression, Diabetes, Dyslipidemia, GERD, Hypertension, PUD and Sleep Apnea Additional Medical History: Gastritis, Occasional urinary incontinence, Osteoarthritis, Back Pain, Cataracts Past Surgical History Surgical History: Hysterectomy Additional Surgical History: Right knee Tka, Carpal tunnel release right hand, Cataract surgery Family History Family Medical History: [place] and Coronary Artery Disease Social History Does any household member use tobacco: No Alcohol Use: None Drug Use: None Medications Home Medications: Home Medications Medication Instructions Recorded Confirmed Type citalopram 40 mg tablet 40 mg PO QHS 04/13/19 History pantoprazole 40 mg tablet,delayed 40 mg PO BID 9 05/16/25 History release metformin 500 mg tablet 500 mg PO DAILY 12/03/21 History fenofibrate 160 mg tablet 160 mg PO QHS 01/14/2305/16 History folic acid 1 mg tablet 1 mg PO DAILY 01/14/2305/16 History acetaminophen 325 mg tablet 650 mg PO Q4H PRN 04/28/23 05/16/25 History (Tylenol) insulin regular human 100 unit/mL See Rx Instructions .Route .COMPLEX 04/28/23 05/16/25 History injection solution (Novolin R Regular U-100 Insulin) rosuvastatin 20 mg tablet 20 mg PO QPM 04/28/23 History cyclobenzaprine 5 mg tablet 5 mg PO QPM 05/23/2405/16 History methenamine hippurate 1 gram tablet 1 g PO BID 4 05/16/25 History aspirin 81 mg tablet,delayed 81 mg PO QDAY 07/19/24 History release metoprolol succinate 25 mg 25 mg PO DAILY 07/19/24 History tablet,extended release 24 hr Saccharomyces boulardii 10 billion 10,000 mmu cells PO BID 02/01/25 05/16/25 History cell capsule ondansetron HCl 4 mg tablet 4 mg PO Q6H 02/01/2505/16 History diclofenac sodium 1 % topical gel 1 ea topical QID 05/16/25 History doxycycline hyclate 100 mg capsule 100 mg PO BID 05/1605/16/25 History magnesium hydroxide 400 mg/5 mL 30 ml PO Q OTHER DAY 1 07/16/24 05/16/25 History oral suspension (Milk of Magnesia) peg [id number] 1 1 drp ophthalmic (eye) TID 05/16/25 05/16/25 History %-0.2 %-0.2 % eye drops (Artificial Tears ([id number])) Allergies Allergies Allergy/AdvReac Type Severity Reaction Status Date / Time ketorolac (From Toradol) Allergy Unknown Swelling Verified 10/04/24 11:19 Sulfa (Sulfonamide Allergy Unknown Verified 10/04/24 11:19 Antibiotics) (SULFA) celecoxib (From Celebrex) Allergy Verified 05/16/25 15:06 methylprednisolone (From Allergy Verified 05/16/25 15:06 Medrol) Labs 05/17/25 05:12 05/17/25 05:12 Labs: Laboratory WBC 19.5 X10^3/uL (3.6-10.0) H 05/17/25 05:12 RBC 5.07 X10^6/uL (3.5-5.4) 05/17/25 05:12 Hgb 13.1 g/dL (12.0-16.0) 05/17/25 05:12 Hct 40.2 % (36.0-47.0) 05/17/25 05:12 MCV 79.4 fL (80.0-100.0) L 05/17/25 05:12 MCH 25.9 pg (27.0-34.0) L 05/17/25 05:12 MCHC 32.7 g/dL (33.0-35.0) L 05/17/25 05:12 RDW 17.8 % (11.6-16.5) H 05/17/25 05:12 Plt Count 300 X10^3/uL (150.0-450.0) 05/17/25 05:12 Plt Count Comment Adequate (ADEQUATE) 05/17/25 05:12 MPV 9.1 fL (7.4-11.0) 05/17/25 05:12 Neut % (Auto) 92.1 % (42.0-75.0) H 05/17/25 05:12 Lymph % (Auto) 3.4 % (21.0-51.0) L 05/17/25 05:12 [place] % (Auto) 4.4 % (0.0-13.0) 05/17/25 05:12 Eos % (Auto) 0.0 % (0.9-2.9) L 05/17/25 05:12 Baso % (Auto) 0.1 % (0.2-1.0) L 05/17/25 05:12 Neut # (Auto) 17.9 x10^3/uL (2.2-4.8) H 05/17/25 05:12 Lymph # (Auto) 0.7 X10^3/uL (1.3-2.9) L 05/17/25 05:12 [place] # (Auto) 0.9 x10^3/uL (0.3-0.8) H 05/17/25 05:12 Eos # (Auto) 0.0 x10^3/uL (0.0-0.2) 05/17/25 05:12 Baso # (Auto) 0.0 X10^3/uL (0.0-0.1) 05/17/25 05:12 Absolute Nucleated RBC 0.0 /100WBC 05/17/25 05:12 Total Counted 100 05/17/25 05:12 Neutrophils % (Manual) 92 % (39-76) H 05/17/25 05:12 Band Neutrophils % 3 % (0-10) 05/17/25 05:12 Lymphocytes % (Manual) 3 % (13-43) L 05/17/25 05:12 Monocytes % (Manual) 2 % (4-9) L 05/17/25 05:12 Plt Morphology Comment Normal (NORMAL) 05/17/25 05:12 RBC Morphology Abnormal (NORMAL) A 05/17/25 05:12 Hypochromasia Slight A 05/17/25 05:12 Anisocytosis Slight A 05/17/25 05:12 Microcytosis Slight A 05/17/25 05:12 Sodium 142 mmol/L (136-145) 05/17/25 05:12 Corrected Sodium 143 mmol/L (136-145) 05/17/25 05:12 Potassium 3.8 mmol/L (3.5-5.1) 05/17/25 05:12 Chloride 108 mmol/L (98-107) H 05/17/25 05:12 Carbon Dioxide 22.7 mmol/L (21-32) 05/17/25 05:12 BUN 36 mg/dL (7-18) H 05/17/25 05:12 Creatinine 1.11 mg/dL (0.55-1.02) H 05/17/25 05:12 Est GFR (MDRD) Af Amer 60 (>60) 05/17/25 05:12 Est GFR (MDRD) Non-Af 49 (>60) L 05/17/25 05:12 Glucose 134 mg/dL (65-99) H 05/17/25 05:12 POC Glucose (mg/dL) 164 mg/dL (65-99) H 05/17/25 10:42 Lactic Acid 1.5 mmol/L (0.4-2.0) 05/16/25 18:51 Calcium 9.3 mg/dL (8.5-10.1) 05/17/25 05:12 Corrected Calcium 10.4 mg/dL (8.5-10.1) H 05/17/25 05:12 Magnesium 1.8 mg/dL (2.0-2.9) L 05/17/25 05:12 Total Bilirubin 1.00 mg/dL (0.2-1.0) 05/17/25 05:12 AST 36 Units/L (15-37) 05/17/25 05:12 ALT 18 Units/L (12-78) 05/17/25 05:12 Alkaline Phosphatase 71 Units/L (46-116) 05/17/25 05:12 Total Protein 6.2 g/dL (6.4-8.2) L 05/17/25 05:12 Albumin 2.6 g/dL (3.4-5.0) L 05/17/25 05:12 Globulin 3.6 g/dL (2.5-4.5) 05/17/25 05:12 Albumin/Globulin Ratio 0.7 Ratio (1.1-2.1) L 05/17/25 05:12 Amylase 606 Units/L (25-115) H 05/17/25 05:12 Lipase 400 Units/L (16-77) H 05/17/25 05:12 TSH 3rd Generation 3.276 uIU/mL (0.358-3.74) 05/16/25 13:32 Specimen Type Catherized urine 05/16/25 17:35 Urine Color Yellow (YELLOW) 05/16/25 17:35 Urine Appearance Clear (CLEAR) 05/16/25 17:35 Urine pH 6.0 (5.0 - 8.0) 05/16/25 17:35 Ur Specific [place] 1.025 (1.000-1.030) 05/16/25 17:35 Urine Protein 2+ (NEGATIVE) 05/16/25 17:35 Urine Glucose (UA) Negative (NEGATIVE) 05/16/25 17:35 Urine Ketones Negative (NEGATIVE) 05/16/25 17:35 Urine Blood 1+ (NEGATIVE) 05/16/25 17:35 Urine Nitrite Negative (NEGATIVE) 05/16/25 17:35 Urine Bilirubin Negative (NEGATIVE) 05/16/25 17:35 Urine Urobilinogen Normal (NORMAL) 05/16/25 17:35 Ur Leukocyte Esterase Negative (NEGATIVE) 05/16/25 17:35 Urine RBC None seen /HPF (0-3) 05/16/25 17:35 Urine WBC 10-20 /HPF (0-5) A 05/16/25 17:35 Ur Squamous Epith Cells Few /HPF (NEGATIVE) 05/16/25 17:35 Urine Bacteria Negative /HPF (NEGATIVE) 05/16/25 17:35 Hyaline Casts Numerous /LPF (NEGATIVE) 05/16/25 17:35 Ur Culture Indicated? Yes/culture set up 05/16/25 17:35 Review of Systems Constitutional: Weakness Eyes: No Symptoms Reported ENT: No Symptoms Reported Respiratory: No Symptoms Reported Cardiovascular: No Symptoms Reported Gastrointestinal: Nausea, Vomiting and Abdominal Pain Genitourinary: No Symptoms Reported Musculoskeletal: No Symptoms Reported Skin: No Symptoms Reported Neurological: No Symptoms Reported Physical Exam Vital Signs: Vital Signs Temperature 98.0 F Temperature 97.5 F Temperature 97.5 F Temperature 97.5 F Pulse Rate [Left Radial] 99 Pulse Rate [Left Radial] 100 Pulse Rate [Left Radial] 207 Pulse Rate [Left Radial] 115 Pulse Rate [Left Radial] 118 Pulse Rate [Left Radial] 118 Pulse Rate 100 Respiratory Rate 21 Respiratory Rate 21 Respiratory Rate 20 Respiratory Rate 17 Respiratory Rate 24 Respiratory Rate 24 Blood Pressure [Left Arm] 123/69 Blood Pressure [Left Arm] 138/80 Blood Pressure [Left Arm] 98/71 Blood Pressure [Left Arm] 122/80 Blood Pressure [Left Arm] 130/86 Blood Pressure [Left Arm] 130/86 Blood Pressure 127/79 O2 Sat by Pulse Oximetry 97 O2 Sat by Pulse Oximetry 95 O2 Sat by Pulse Oximetry 95 O2 Sat by Pulse Oximetry 95 Oriented: Unable to test Respiratory: Diminished Throughout Cardiovascular: Tachycardia Auscultation: Bowel Sounds: Normal Palpation: Normal Tenderness: Normal Skin: Normal Musculoskeletal: Normal Psychiatric: Normal Mood Description: Calm Affect: Normal Speech Pattern: Delayed Assessment/Plan (1) SVT (supraventricular tachycardia): Status: Acute (2) Pancreatitis: Qualifiers: Acute pancreatitis complication: unspecified Chronicity: acute P ancreatitis type: other Qualified Code(s): K85.80 - Other acute pancreatitis without necrosis or infection Status: Acute (3) UTI (urinary tract infection): Qualifiers: Hematuria presence: with hematuria Urinary tract infection type: site unspecified Qualified Code(s): N39.0 - Urinary tract infection, site not specified; R31.9 - Hematuria, unspecified Status: Acute (4) Hypertension: Qualifiers: Hypertension type: primary hypertension Qualified Code(s): I10 - Essential (primary) hypertension Status: Chronic (5) GERD (gastroesophageal reflux disease): Qualifiers: Esophagitis presence: esophagitis presence not specified Qualified Code(s): K21.9 - Gastro-esophageal reflux disease without esophagitis Status: Chronic (6) Diabetes mellitus, type 2: Qualifiers: Diabetes mellitus complication status: with hyperglycemia Diabetes mellitus prison insulin use: with prison use Qualified Code(s): E11.65 - Type 2 diabetes mellitus with hyperglycemia; Z79.4 - termite control technician (current) use of insulin Status: Chronic (7) PUD (peptic ulcer disease): Status: Chronic Review H&P Reviewed: Yes Patient was examined?: Yes
[2025-05-17] MEDS: TRICOR TAB 48 MG PO SCH (21:50)
[2025-05-18] MEDS: NS 250 ML IV 25 ML IV PRN (05:15)
[2025-05-18 05:52] LABS: MEAN PLATELET VOLUME 9.2 fL (7.4-11.0); RED CELL DISTRIBUTION WIDTH 17.7 % (11.6-16.5)
[2025-05-18 06:03] LABS: COR CA(FOR HYPOALB) 10.1 mg/dL (8.5-10.1); CREATININE 0.80 mg/dL (0.55-1.02); eGFR NON BLACK RACES > 60 (>60)
[2025-05-18] MEDS: ULTRAM PO PRN (07:09)
[2025-05-18] MEDS ORDERED: GLUCOPHAGE ONE (08:26)
[2025-05-18] MEDS: LANOXIN or DIGITEK PO SCH (09:07)
[2025-05-18] MEDS: TOPROL XL PO SCH (09:07)
[2025-05-18] MEDS: COLACE CAP 100 MG PO PRN (10:30)
[2025-05-18] MEDS: MILK OF MAGNESIA PO PRN (10:30)
--- NOTE | 2025-05-18 10:57 | PCM.PROG ---
Progress Note Progress Note for Day of Date of Exam: 05/18/25 Subjective Subjective: Patient seen at bedside, no acute events overnight. She is feeling better this morning. She has been tolerating liquids. Denies nausea or vomiting. She still has some abdominal pain. Her heart rate has been stable. She has been on digoxin and metoprolol succinate. Dr. Jasso adjusting her medications. Labs/imaging reviewed: - WBC 14.2 hemoglobin 11.3 potassium 4.7 creatinine 0.80 - Urine culture negative - Blood culture pending Plan: Advance diet to soft diet. Follow cardiology recommendations. Continue metoprolol succinate and digoxin. Check dig level. Follow pending cultures. Continue IV antibiotics for pancreatitis/duodenitis. Zofran as needed. Continue home medications. Possible discharge back to group home tomorrow. Replace electrolytes as per protocol. Monitor a.m. labs and imaging. Past Medical Family Social History Allergies: Allergies ketorolac (From Toradol) Allergy (Unknown, Verified 10/04/24 11:19) Swelling Comments: Inside Mouth-CAN'T TAKE ANY KIND OF ARTHRITIS MED BC IT REACTS THE SAME WAY Sulfa (Sulfonamide Antibiotics) (SULFA) Allergy (Unknown, Verified 10/04/24 11:19) celecoxib (From Celebrex) Allergy (Verified 05/16/25 15:06) methylprednisolone (From Medrol) Allergy (Verified 05/16/25 15:06) Vital Signs and I&O's Vital Signs: Vital Signs Temperature 98.2 F Temperature 98.5 F Pulse Rate [Left Radial] 99 Pulse Rate [Left Radial] 92 Pulse Rate 100 Respiratory Rate 20 Respiratory Rate 20 Respiratory Rate 20 Respiratory Rate 20 Blood Pressure [Left Arm] 121/78 Blood Pressure [Left Arm] 118/66 O2 Sat by Pulse Oximetry 97 O2 Sat by Pulse Oximetry 94 Intake and Output: Intake & Output 05/15/25 05/16/25 05/17/25 05/18/25 23:59 23:59 23:59 23:59 Intake Total 150 / 150 2290 / 2290 490 / 490 Balance 150 / 150 2290 / 2290 490 / 490 Physical Exam Oriented: Person and Place Respiratory: Generalized and Diminished Cardiovascular: Tachycardia Auscultation: Bowel Sounds: Normal Tenderness: Periumbilical and Mild Skin: Normal Musculoskeletal: Normal Psychiatric: Normal Mood Description: Calm Affect: Normal Speech Pattern: Clear Laboratory and Diagnostics 05/18/25 05:12 05/18/25 05:12 Labs: 05/16/25 17:35 Urine,Catheterized Urine Culture - Final Laboratory WBC 14.2 X10^3/uL (3.6-10.0) H 05/18/25 05:12 RBC 4.34 X10^6/uL (3.5-5.4) 05/18/25 05:12 Hgb 11.3 g/dL (12.0-16.0) L 05/18/25 05:12 Hct 34.7 % (36.0-47.0) L 05/18/25 05:12 MCV 79.9 fL (80.0-100.0) L 05/18/25 05:12 MCH 26.1 pg (27.0-34.0) L 05/18/25 05:12 MCHC 32.7 g/dL (33.0-35.0) L 05/18/25 05:12 RDW 17.7 % (11.6-16.5) H 05/18/25 05:12 Plt Count 256 X10^3/uL (150.0-450.0) 05/18/25 05:12 Plt Count Comment Adequate (ADEQUATE) 05/17/25 05:12 MPV 9.2 fL (7.4-11.0) 05/18/25 05:12 Neut % (Auto) 88.4 % (42.0-75.0) H 05/18/25 05:12 Lymph % (Auto) 5.3 % (21.0-51.0) L 05/18/25 05:12 [place] % (Auto) 6.0 % (0.0-13.0) 05/18/25 05:12 Eos % (Auto) 0.1 % (0.9-2.9) L 05/18/25 05:12 Baso % (Auto) 0.2 % (0.2-1.0) 05/18/25 05:12 Neut # (Auto) 12.6 x10^3/uL (2.2-4.8) H 05/18/25 05:12 Lymph # (Auto) 0.7 X10^3/uL (1.3-2.9) L 05/18/25 05:12 [place] # (Auto) 0.8 x10^3/uL (0.3-0.8) 05/18/25 05:12 Eos # (Auto) 0.0 x10^3/uL (0.0-0.2) 05/18/25 05:12 Baso # (Auto) 0.0 X10^3/uL (0.0-0.1) 05/18/25 05:12 Absolute Nucleated RBC 0.0 /100WBC 05/18/25 05:12 Total Counted 100 05/17/25 05:12 Neutrophils % (Manual) 92 % (39-76) H 05/17/25 05:12 Band Neutrophils % 3 % (0-10) 05/17/25 05:12 Lymphocytes % (Manual) 3 % (13-43) L 05/17/25 05:12 Monocytes % (Manual) 2 % (4-9) L 05/17/25 05:12 Plt Morphology Comment Normal (NORMAL) 05/17/25 05:12 RBC Morphology Abnormal (NORMAL) A 05/17/25 05:12 Hypochromasia Slight A 05/17/25 05:12 Anisocytosis Slight A 05/17/25 05:12 Microcytosis Slight A 05/17/25 05:12 Sodium 146 mmol/L (136-145) H 05/18/25 05:12 Corrected Sodium TNP 05/18/25 05:12 Potassium 4.7 mmol/L (3.5-5.1) 05/18/25 05:12 Chloride 112 mmol/L (98-107) H 05/18/25 05:12 Carbon Dioxide 23.5 mmol/L (21-32) 05/18/25 05:12 BUN 25 mg/dL (7-18) H 05/18/25 05:12 Creatinine 0.80 mg/dL (0.55-1.02) 05/18/25 05:12 Est GFR (MDRD) Af Amer > 60 (>60) 05/18/25 05:12 Est GFR (MDRD) Non-Af > 60 (>60) 05/18/25 05:12 Glucose 96 mg/dL (65-99) 05/18/25 05:12 POC Glucose (mg/dL) 105 mg/dL (65-99) H 05/18/25 05:08 Lactic Acid 1.5 mmol/L (0.4-2.0) 05/16/25 18:51 Calcium 8.6 mg/dL (8.5-10.1) 05/18/25 05:12 Corrected Calcium 10.1 mg/dL (8.5-10.1) 05/18/25 05:12 Magnesium 2.1 mg/dL (2.0-2.9) 05/18/25 05:12 Total Bilirubin 1.00 mg/dL (0.2-1.0) 05/18/25 05:12 AST 42 Units/L (15-37) H 05/18/25 05:12 ALT 13 Units/L (12-78) 05/18/25 05:12 Alkaline Phosphatase 72 Units/L (46-116) 05/18/25 05:12 Total Protein 5.7 g/dL (6.4-8.2) L 05/18/25 05:12 Albumin 2.1 g/dL (3.4-5.0) L 05/18/25 05:12 Globulin 3.6 g/dL (2.5-4.5) 05/18/25 05:12 Albumin/Globulin Ratio 0.6 Ratio (1.1-2.1) L 05/18/25 05:12 Amylase 80 Units/L (25-115) 05/18/25 05:12 Lipase 60 Units/L (16-77) 05/18/25 05:12 TSH 3rd Generation 3.276 uIU/mL (0.358-3.74) 05/16/25 13:32 Specimen Type Catherized urine 05/16/25 17:35 Urine Color Yellow (YELLOW) 05/16/25 17:35 Urine Appearance Clear (CLEAR) 05/16/25 17:35 Urine pH 6.0 (5.0 - 8.0) 05/16/25 17: Ur Specific [place] 1.025 (1.000-1.030) 05/16/25 17:35 Urine Protein 2+ (NEGATIVE) 05/16/25 17:35 Urine Glucose (UA) Negative (NEGATIVE) 05/16/25 17:35 Urine Ketones Negative (NEGATIVE) 05/16/25 17: Urine Blood 1+ (NEGATIVE) 05/16/25 17: Urine Nitrite Negative (NEGATIVE) 05/16/25 17:35 Urine Bilirubin Negative (NEGATIVE) 05/16/25 17:35 Urine Urobilinogen Normal (NORMAL) 05/16/25 17:35 Ur Leukocyte Esterase Negative (NEGATIVE) 05/16/25 17:35 Urine RBC None seen /HPF (0-3) 05/16/25 17:35 Urine WBC 10-20 /HPF (0-5) A 05/16/25 17:35 Ur Squamous Epith Cells Few /HPF (NEGATIVE) 05/16/25 17:35 Urine Bacteria Negative /HPF (NEGATIVE) 05/16/25 17:35 Hyaline Casts Numerous /LPF (NEGATIVE) 05/16/25 17:35 Ur Culture Indicated? Yes/culture set up 05/16/25 17:35 Plan (1) SVT (supraventricular tachycardia): Status: Acute (2) Pancreatitis: Status: Acute Qualifiers: Chronicity: acute Pancreatitis type: other Acute pancreatitis complication: unspecified Qualified Code(s): K85.80 - Other acute pancreatitis without necrosis or infection (3) Hypertension: Status: Chronic Qualifiers: Hypertension type: primary hypertension Qualified Code(s): I10 - Essential (primary) hypertension (4) GERD (gastroesophageal reflux disease): Status: Chronic Qualifiers: Esophagitis presence: esophagitis presence not specified Qualified Code(s): K21.9 - Gastro-esophageal reflux disease without esophagitis (5) Diabetes mellitus, type 2: Status: Chronic Qualifiers: Diabetes mellitus complication status: with hyperglycemia Diabetes mellitus custodial insulin use: with lobsterman use Qualified Code(s): E11.65 - Type 2 diabetes mellitus with hyperglycemia; Z79.4 - intermediate accountant (current) use of insulin (6) PUD (peptic ulcer disease): Status: Chronic
--- NOTE | 2025-05-18 13:59 | NOTE.SOAP ---
Soap Note Note for Day of Date of Exam: 05/18/25 Subjective Data Subjective Data: no c/o- no SVT for 24 hours- 3 events since hospitalization Objective Data Objective Data: hr 90-100 amylase/lipase down to normal echo: good lv/lvh TAA- seen on cta 08/23 Assessment Assessment: pancreatitis-improving, SVT- none in 24 hours, TAA 4.6 on echo/4.5 cm on CTA 08/23 Plan Plan: cont dig/bb
[2025-05-19 05:47] LABS: MEAN PLATELET VOLUME 8.8 fL (7.4-11.0); RED CELL DISTRIBUTION WIDTH 17.8 % (11.6-16.5)
[2025-05-19 05:57] LABS: COR CA(FOR HYPOALB) 9.8 mg/dL (8.5-10.1); CREATININE 0.60 mg/dL (0.55-1.02); eGFR NON BLACK RACES > 60 (>60)
[2025-05-19] MEDS ORDERED: CONSULT PHARMACY - POTASSIUM & MAGNESIUM XX SCH ×2 (07:00)
[2025-05-19] MEDS ORDERED: GLUCOPHAGE ONE (08:52)
[2025-05-19] MEDS: MAG-OX TAB PO SCH (09:00)
[2025-05-19] MEDS: K-DUR TAB 20 MEQ PO SCH (09:03)
[2025-05-19] MEDS ORDERED: PULMICORT NEB TX 0.5 MG NEB ONE (09:36)
[2025-05-19] MEDS: PULMICORT NEB TX 0.5 MG NEB SCH (09:38)
--- NOTE | 2025-05-19 11:13 | PCM.PROG ---
Progress Note Progress Note for Day of Date of Exam: 05/19/25 Subjective Subjective: Patient seen at bedside. This morning, she is having difficulty with her speech and strength in her arms, which appears to be new for her. She does also report feeling fatigue. She still has some abdominal pain. Her heart rate has been stable. She has been on digoxin and metoprolol succinate. Dr. Jasso adjusting her medications. Labs/imaging reviewed: - WBC 8.1, hemoglobin 9.9, platelets 202, sodium 146, potassium 3.1, creatinine 0.6, glucose 68. - Urine culture negative - Blood culture pending Plan: Due to change in mentation and neurological symptoms will get an MRI of the brain for further evaluation. Will also repeat a chest x-ray. Will get AIT, UA, and blood cultures. Reviewing medications will hold nightly Flexeril. Continue soft diet. Follow cardiology recommendations. Continue metoprolol succinate and digoxin. Check dig level. Follow pending cultures. Continue IV antibiotics for pancreatitis/duodenitis. Zofran as needed. Continue home medications. Replace electrolytes as per protocol. Monitor a.m. labs and imaging. Past Medical Family Social History Allergies: Allergies ketorolac (From Toradol) Allergy (Unknown, Verified 10/04/24 11:19) Swelling Comments: Inside Mouth-CAN'T TAKE ANY KIND OF ARTHRITIS MED BC IT REACTS THE SAME WAY Sulfa (Sulfonamide Antibiotics) (SULFA) Allergy (Unknown, Verified 10/04/24 11:19) celecoxib (From Celebrex) Allergy (Verified 05/16/25 15:06) methylprednisolone (From Medrol) Allergy (Verified 05/16/25 15:06) Review of Systems ROS changes noted: see HPI Vital Signs and I&O's Vital Signs: Vital Signs Temperature 97.8 F Temperature 98.1 F Pulse Rate [Left Radial] 102 Pulse Rate [Left Radial] 98 Pulse Rate 102 Pulse Rate 102 Respiratory Rate 16 Respiratory Rate 16 Respiratory Rate 17 Blood Pressure [Left Arm] 111/60 Blood Pressure [Left Arm] 126/64 O2 Sat by Pulse Oximetry 93 O2 Sat by Pulse Oximetry 92 O2 Sat by Pulse Oximetry 94 Intake and Output: Intake & Output 05/16/25 05/17/25 05/18/25 05/19/25 23:59 23:59 23:59 23:59 Intake Total 150 / 150 2290 / 2290 2668 / 2668 614 / 614 Balance 150 / 150 2290 / 2290 2668 / 2668 614 / 614 Physical Exam Oriented: Person and Place Respiratory: Generalized and Diminished Cardiovascular: Normal Auscultation: Bowel Sounds: Normal Tenderness: Periumbilical and Mild Skin: Normal Musculoskeletal: Motor Deficit (upper extremity weakness ) Psychiatric: Normal Mood Description: Calm Affect: Normal Speech Pattern: Delayed Laboratory and Diagnostics 05/19/25 05:07 05/19/25 05:07 Labs: 05/16/25 14:42 Blood Blood Culture - Preliminary 05/16/25 13:32 Blood Blood Culture - Preliminary 05/16/25 17:35 Urine,Catheterized Urine Culture - Final Laboratory WBC 8.1 X10^3/uL (3.6-10.0) 05/19/25 05:07 RBC 3.79 X10^6/uL (3.5-5.4) 05/19/25 05:07 Hgb 9.9 g/dL (12.0-16.0) L 05/19/25 05:07 Hct 30.5 % (36.0-47.0) L 05/19/25 05:07 MCV 80.4 fL (80.0-100.0) 05/19/25 05:07 MCH 26.2 pg (27.0-34.0) L 05/19/25 05:07 MCHC 32.6 g/dL (33.0-35.0) L 05/19/25 05:07 RDW 17.8 % (11.6-16.5) H 05/19/25 05:07 Plt Count 202 X10^3/uL (150.0-450.0) 05/19/25 05:07 Plt Count Comment Adequate (ADEQUATE) 05/17/25 05:12 MPV 8.8 fL (7.4-11.0) 05/19/25 05:07 Neut % (Auto) 82.4 % (42.0-75.0) H 05/19/25 05:07 Lymph % (Auto) 8.3 % (21.0-51.0) L 05/19/25 05:07 Lyon % (Auto) 8.0 % (0.0-13.0) 05/19/25 05:07 Eos % (Auto) 1.1 % (0.9-2.9) 05/19/25 05:07 Baso % (Auto) 0.2 % (0.2-1.0) 05/19/25 05:07 Neut # (Auto) 6.7 x10^3/uL (2.2-4.8) H 05/19/25 05:07 Lymph # (Auto) 0.7 X10^3/uL (1.3-2.9) L 05/19/25 05:07 Lyon # (Auto) 0.6 x10^3/uL (0.3-0.8) 05/19/25 05:07 Eos # (Auto) 0.1 x10^3/uL (0.0-0.2) 05/19/25 05:07 Baso # (Auto) 0.0 X10^3/uL (0.0-0.1) 05/19/25 05:07 Absolute Nucleated RBC 0.0 /100WBC 05/19/25 05:07 Total Counted 100 05/17/25 05:12 Neutrophils % (Manual) 92 % (39-76) H 05/17/25 05:12 Band Neutrophils % 3 % (0-10) 05/17/25 05:12 Lymphocytes % (Manual) 3 % (13-43) L 05/17/25 05:12 Monocytes % (Manual) 2 % (4-9) L 05/17/25 05:12 Plt Morphology Comment Normal (NORMAL) 05/17/25 05:12 RBC Morphology Abnormal (NORMAL) A 05/17/25 05:12 Hypochromasia Slight A 05/17/25 05:12 Anisocytosis Slight A 05/17/25 05:12 Microcytosis Slight A 05/17/25 05:12 Sodium 146 mmol/L (136-145) H 05/19/25 05:07 Corrected Sodium TNP 05/19/25 05:07 Potassium 3.1 mmol/L (3.5-5.1) L 05/19/25 05:07 Chloride 113 mmol/L (98-107) H 05/19/25 05:07 Carbon Dioxide 26.3 mmol/L (21-32) 05/19/25 05:07 BUN 17 mg/dL (7-18) 05/19/25 05:07 Creatinine 0.60 mg/dL (0.55-1.02) 05/19/25 05:07 Est GFR (MDRD) Af Amer > 60 (>60) 05/19/25 05:07 Est GFR (MDRD) Non-Af > 60 (>60) 05/19/25 05:07 Glucose 68 mg/dL (65-99) 05/19/25 05:07 POC Glucose (mg/dL) 71 mg/dL (65-99) 05/19/25 05:32 Lactic Acid 1.5 mmol/L (0.4-2.0) 05/16/25 18:51 Calcium 8.1 mg/dL (8.5-10.1) L 05/19/25 05:07 Corrected Calcium 9.8 mg/dL (8.5-10.1) 05/19/25 05:07 Magnesium 1.8 mg/dL (2.0-2.9) L 05/19/25 05:07 Total Bilirubin 0.80 mg/dL (0.2-1.0) 05/19/25 05:07 AST 21 Units/L (15-37) 05/19/25 05:07 ALT 10 Units/L (12-78) L 05/19/25 05:07 Alkaline Phosphatase 67 Units/L (46-116) 05/19/25 05:07 Total Protein 5.3 g/dL (6.4-8.2) L 05/19/25 05:07 Albumin 1.9 g/dL (3.4-5.0) L 05/19/25 05:07 Globulin 3.4 g/dL (2.5-4.5) 05/19/25 05:07 Albumin/Globulin Ratio 0.6 Ratio (1.1-2.1) L 05/19/25 05:07 Amylase 80 Units/L (25-115) 05/18/25 05:12 Lipase 60 Units/L (16-77) 05/18/25 05:12 TSH 3rd Generation 3.276 uIU/mL (0.358-3.74) 05/16/25 13:32 Specimen Type Catherized urine 05/16/25 17:35 Urine Color Yellow (YELLOW) 05/16/25 17:35 Urine Appearance Clear (CLEAR) 05/16/25 17:35 Urine pH 6.0 (5.0 - 8.0) 05/16/25 17:35 Ur Specific [place] 1.025 (1.000-1.030) 05/16/25 17:35 Urine Protein 2+ (NEGATIVE) 05/16/25 17:35 Urine Glucose (UA) Negative (NEGATIVE) 05/16/25 17:35 Urine Ketones Negative (NEGATIVE) 05/16/25 17:35 Urine Blood 1+ (NEGATIVE) 05/16/25 17:35 Urine Nitrite Negative (NEGATIVE) 05/16/25 17:35 Urine Bilirubin Negative (NEGATIVE) 05/16/25 17:35 Urine Urobilinogen Normal (NORMAL) 05/16/25 17:35 Ur Leukocyte Esterase Negative (NEGATIVE) 05/16/25 17:35 Urine RBC None seen /HPF (0-3) 05/16/25 17:35 Urine WBC 10-20 /HPF (0-5) A 05/16/25 17:35 Ur Squamous Epith Cells Few /HPF (NEGATIVE) 05/16/25 17:35 Urine Bacteria Negative /HPF (NEGATIVE) 05/16/25 17:35 Hyaline Casts Numerous /LPF (NEGATIVE) 05/16/25 17:35 Ur Culture Indicated? Yes/culture set up 05/16/25 17:35 Digoxin < 0.30 ng/mL (0.9-2) L 05/18/25 05:12 Plan (1) SVT (supraventricular tachycardia): Status: Acute (2) Pancreatitis: Status: Acute Qualifiers: Chronicity: acute Pancreatitis type: other Acute pancreatitis complication: unspecified Qualified Code(s): K85.80 - Other acute pancreatitis without necrosis or infection (3) Hypertension: Status: Chronic Qualifiers: Hypertension type: primary hypertension Qualified Code(s): I10 - Essential (primary) hypertension (4) GERD (gastroesophageal reflux disease): Status: Chronic Qualifiers: Esophagitis presence: esophagitis presence not specified Qualified Code(s): K21.9 - Gastro-esophageal reflux disease without esophagitis (5) Diabetes mellitus, type 2: Status: Chronic Qualifiers: Diabetes mellitus complication status: with hyperglycemia Diabetes mellitus terminal superintendent insulin use: with terminal superintendent use Qualified Code(s): E11.65 - Type 2 diabetes mellitus with hyperglycemia; Z79.4 - terminal superintendent (current) use of insulin (6) PUD (peptic ulcer disease): Status: Chronic (7) Altered mental status: Status: Acute Qualifiers: Altered mental status type: transient alteration of awareness Qualified Code(s): R40.4 - Transient alteration of awareness
[2025-05-19] MEDS: XOPENEX 1.25 MG/3 ML NEBULE NEB SCH (13:29)
--- NOTE | 2025-05-19 14:30 | MRI ---
EXAM: MRI BRAIN WITHOUT CONTRAST HISTORY: AMS,; COMPARISON: CT dated 07/21/2024. TECHNIQUE: Multiplanar multisequence MRI of the brain was performed without intravenous contrast. FINDINGS: No areas of restricted diffusion. No acute intracranial hemorrhage or extra-axial fluid collection. No mass effect or midline shift. Advanced cerebral atrophy and chronic microvascular white matter disease. No hydrocephalus. Major intracranial flow voids are preserved. Visualized paranasal sinuses and mastoid air cells are well aerated. IMPRESSION: 1. No acute intracranial abnormality. Negative for acute infarction or hemorrhage. 2. Advanced cerebral atrophy and chronic microvascular white matter disease. THIS IS AN ELECTRONICALLY VERIFIED FINAL REPORT 05/19/2025 2:26 PM - Electronically signed by Ike Yan MD
[2025-05-19 18:46] LABS: BLOOD/HEMOGLOBIN,URINE 2+ (NEGATIVE); LEUKOCYTE ESTERASE ,URINE NEGATIVE (NEGATIVE); NITRITES,URINE NEGATIVE (NEGATIVE)
[2025-05-19 18:55] LABS: APPEARANCE,URINE CLEAR (CLEAR)
[2025-05-19 18:56] LABS: SQUAMOUS EPITHELIAL CELL,UR FEW /HPF (NEGATIVE)
[2025-05-19] MEDS: TRICOR TAB 160 MG PO SCH (21:03)
[2025-05-20] MEDS ORDERED: ZOSYN VIAL 3.375 GRAMS IV ONE (05:24)
[2025-05-20 06:13] LABS: MEAN PLATELET VOLUME 8.7 fL (7.4-11.0); RED CELL DISTRIBUTION WIDTH 17.9 % (11.6-16.5)
[2025-05-20 06:21] LABS: COR CA(FOR HYPOALB) 10.2 mg/dL (8.5-10.1); CREATININE 0.54 mg/dL (0.55-1.02); eGFR NON BLACK RACES > 60 (>60)
[2025-05-20] MEDS ORDERED: CONSULT PHARMACY - POTASSIUM & MAGNESIUM XX SCH (08:00)
[2025-05-20] MEDS ORDERED: GLUCOPHAGE ONE (08:18)
[2025-05-20] MEDS: NS 1,000 ML IV 1,000 ML with MAGNESIUM SULFATE 50% INJ VIAL 1 G IV SCH (08:38)
[2025-05-20] MEDS: POTASSIUM CHLORIDE LIQ PO SCH (08:42)
[2025-05-20] MEDS: DULCOLAX SUPPOSITORY 10 MG RECTAL ONE (09:56)
[2025-05-20 12:41] VITALS: BP 120/61; PULSE 85; RESP 20; TEMP 99; O2SAT 96
== END 2025-05-20 14:15 | DRG 439 ==
LOC: MED/SURG → OBSVTOIN 13:06
PROVIDERS: ADMIT Internal Medicine; ATTEND Internal Medicine
DX: K85.80 Other acute pancreatitis without necrosis or infection; R26.2 Difficulty in walking, not elsewhere classified; F41.1 Generalized anxiety disorder; I10 Essential (primary) hypertension; E13.9 Other specified diabetes mellitus without complications; K27.7 Chronic peptic ulcer, site unspecified, without hemorrhage or perforation; N39.0 Urinary tract infection, site not specified; M16.9 Osteoarthritis of hip, unspecified; Z91.81 History of falling; R13.19 Other dysphagia; M48.07 Spinal stenosis, lumbosacral region; Z86.73 Personal history of transient ischemic attack (TIA), and cerebral infarction without residual deficits; R41.82 Altered mental status, unspecified; R47.81 Slurred speech; Z66 Do not resuscitate